=== PATIENT | male | born 1955 | race Caucasian/White ===

== ENCOUNTER → 2017-12-01 | Outpatient (CLI) | payer MEDICARE, MEDICAID | LOC: WOUNDCARE 13:57 | PROVIDERS: ATTEND Surgery | DX: L89.153 Pressure ulcer of sacral region, stage 3 (principal); Q05.2 Lumbar spina bifida with hydrocephalus; G82.21 Paraplegia, complete | CPT/HCPCS: 99203 ==

== ENCOUNTER → 2017-12-08 | Outpatient (CLI) | payer MEDICARE, MEDICAID | LOC: WOUNDCARE 13:30 | PROVIDERS: ATTEND Surgery | DX: L89.153 Pressure ulcer of sacral region, stage 3 (principal); Q05.2 Lumbar spina bifida with hydrocephalus; G82.21 Paraplegia, complete | CPT/HCPCS: 99212 ==

== ENCOUNTER → 2019-02-05 | Outpatient (CLI) | payer OTHER, MEDICARE, MEDICAID | LOC: LABNPT 15:34 | PROVIDERS: ATTEND Family Medicine | DX: Z01.89 Encounter for other specified special examinations (principal) | CPT/HCPCS: 85652 ==

== ENCOUNTER → 2019-02-09 | Outpatient (CLI) | payer MEDICARE, MEDICAID | LOC: WOUNDCARE 12:51 | PROVIDERS: ATTEND Surgery | DX: Q05.3 Sacral spina bifida with hydrocephalus (principal); G96.0 Cerebrospinal fluid leak; L98.491 Non-pressure chronic ulcer of skin of other sites limited to breakdown of skin; L22 Diaper dermatitis; I96 Gangrene, not elsewhere classified | CPT/HCPCS: 99213 ==

== ENCOUNTER → 2019-03-02 | Outpatient (CLI) | payer MEDICARE, MEDICAID | LOC: WOUNDCARE 14:13 | PROVIDERS: ATTEND Surgery | DX: Q05.3 Sacral spina bifida with hydrocephalus (principal); G96.0 Cerebrospinal fluid leak; L98.491 Non-pressure chronic ulcer of skin of other sites limited to breakdown of skin; L22 Diaper dermatitis; I96 Gangrene, not elsewhere classified | CPT/HCPCS: 99214 ==

== ENCOUNTER → 2019-03-23 | Outpatient (CLI) | payer MEDICARE, MEDICAID | LOC: WOUNDCARE 14:16 | PROVIDERS: ATTEND Surgery | DX: L98.491 Non-pressure chronic ulcer of skin of other sites limited to breakdown of skin (principal); I96 Gangrene, not elsewhere classified; G96.0 Cerebrospinal fluid leak; L22 Diaper dermatitis; Q05.3 Sacral spina bifida with hydrocephalus | CPT/HCPCS: 99212 ==

== ENCOUNTER → 2019-04-06 | Outpatient (CLI) | payer MEDICARE, MEDICAID | LOC: WOUNDCARE 14:33 | PROVIDERS: ATTEND Surgery | DX: L98.491 Non-pressure chronic ulcer of skin of other sites limited to breakdown of skin (principal); I96 Gangrene, not elsewhere classified; G96.0 Cerebrospinal fluid leak; L22 Diaper dermatitis; Q05.3 Sacral spina bifida with hydrocephalus | CPT/HCPCS: 99212 ==

== ENCOUNTER → 2019-05-04 | Outpatient (CLI) | payer MEDICARE, MEDICAID | LOC: WOUNDCARE 14:57 | PROVIDERS: ATTEND Surgery | DX: L22 Diaper dermatitis (principal); L98.491 Non-pressure chronic ulcer of skin of other sites limited to breakdown of skin; G96.0 Cerebrospinal fluid leak; Q05.8 Sacral spina bifida without hydrocephalus; I96 Gangrene, not elsewhere classified | CPT/HCPCS: 99212 ==

== ENCOUNTER → 2019-06-01 | Outpatient (CLI) | payer MEDICARE, MEDICAID | LOC: WOUNDCARE 15:05 | PROVIDERS: ATTEND Surgery | DX: L98.491 Non-pressure chronic ulcer of skin of other sites limited to breakdown of skin (principal); L22 Diaper dermatitis; G96.0 Cerebrospinal fluid leak; Q05.2 Lumbar spina bifida with hydrocephalus; I96 Gangrene, not elsewhere classified ==

== ENCOUNTER → 2019-06-29 | Outpatient (CLI) | payer MEDICARE, MEDICAID | LOC: WOUNDCARE 14:58 | PROVIDERS: ATTEND Surgery | DX: I96 Gangrene, not elsewhere classified (principal); L98.491 Non-pressure chronic ulcer of skin of other sites limited to breakdown of skin; L22 Diaper dermatitis; G96.0 Cerebrospinal fluid leak; Q05.3 Sacral spina bifida with hydrocephalus | CPT/HCPCS: 99212 ==

== ENCOUNTER → 2019-07-27 | Outpatient (CLI) | payer MEDICARE, MEDICAID | LOC: WOUNDCARE 12:59 | PROVIDERS: ATTEND Surgery | DX: L98.491 Non-pressure chronic ulcer of skin of other sites limited to breakdown of skin (principal); L22 Diaper dermatitis; G96.0 Cerebrospinal fluid leak; Q05.3 Sacral spina bifida with hydrocephalus | CPT/HCPCS: 99212 ==

== ENCOUNTER 2019-09-29 06:05 | Outpatient (CLI) | payer MEDICARE, MEDICAID ==
[~2019-09-29] VITALS: Ht 162.6 cm; Wt 63.6 kg
[2019-09-29] MEDS ORDERED: MIRT15TA6 PO (14:50)
[2019-09-29] MEDS ORDERED: ALPR0.5T5 PO (14:50)
[2019-09-29] MEDS ORDERED: PANT40TA3 PO (14:50)
[2019-09-29] MEDS ORDERED: MELA1TAB15 PO (14:50)
[2019-09-29] MEDS ORDERED: ASCO500C15 PO (14:50)
[2019-09-29] MEDS ORDERED: CITA40TA11 PO (14:50)
[2019-09-29] MEDS ORDERED: POTA10CA43 PO (14:50)
[2019-09-29] MEDS ORDERED: BUME1TAB8 PO (14:50)
[2019-09-29] MEDS ORDERED: RANI300T4 PO (14:50)
[2019-09-29] MEDS ORDERED: LOVA10TA PO (14:50)
== END 2019-09-29 14:56 | disposition home or self-care (01) ==
LOC: PREOP 06:05
PROVIDERS: ATTEND Specialist
DX: Z01.818 Encounter for other preprocedural examination (principal)

== ENCOUNTER 2019-10-01 08:25 | Day surgery (SDC) | payer MEDICARE, MEDICAID ==
[~2019-10-01] VITALS: Ht 162 cm; Wt 63.6 kg
[~2019-10-01 08:25] MED LIST: ALPR0.5T5 PO; ASCO500C15 PO; BUME1TAB8 PO; CITA40TA11 PO; LOVA10TA PO; MELA1TAB15 PO; MIRT15TA6 PO; PANT40TA3 PO; POTA10CA43 PO; RANI300T4 PO
[2019-10-01] MEDS ORDERED: POVIDONE (BETADINE) OPHTH SOLN 5% 30 ML OP ONE (08:45)
[2019-10-01] MEDS ORDERED: LIDOCAINE PF 1% 2 ML VIAL IR PRN (08:45)
[2019-10-01] MEDS ORDERED: TIMOLOL MALEATE 0.5% 5 ML (TIMOPTIC) BTL OU PRN (08:45)
[2019-10-01] MEDS ORDERED: MOXIFLOXACIN OPHTH SOLN 5 MG/ML 0.3 ML SYRINGE OP ONE (08:45)
[2019-10-01] MEDS: TETRACAINE 0.5% OPHTH SOLN 4 ML BTL (SINGLE DOSE ONLY) OU PRN ×4 (08:56→09:26)
[2019-10-01 09:02] VITALS: BP 139/77
[2019-10-01] MEDS: PHENYLEPHRINE 10% OPHTH (NEO-SYN) 5 ML BTL OU SCH ×3 (09:12→09:26)
[2019-10-01] MEDS: CYCLOPENTOLATE 1% (CYCLOGYL) 2 ML DROPS OP SCH ×3 (09:12→09:27)
[2019-10-01] MEDS ORDERED: MIDAZOLAM 2 MG/2 ML (VERSED) VIAL ONE (09:44)
--- NOTE | 2019-10-01 09:45 | Ophthalmologist Pre-Op Note ---
Pre-Operative Progress Note H&P Reviewed The H&P was reviewed, patient examined and no changes noted. Date H&P Reviewed: Oct 01, 2019 Time H&P Reviewed: 09:45 Pre-Op Dx Cataract, Left Eye JORGE ANSARI MD Oct 01, 2019 09:45
[2019-10-01] MEDS ORDERED: acetaZOLAMIDE ER 500 MG CAP (DIAMOX SEQUELS) PO ONE (10:00)
--- NOTE | 2019-10-01 10:09 | Ophthalmology Operative Report ---
Cataract removal/placement IOL PREOPERATIVE DIAGNOSIS: Cataract Left Eye POSTOPERATIVE DIAGNOSIS: Cataract Left Eye PROCEDURE: Cataract removal and placement of posterior chamber implant, left eye SURGEON: Scotty Ansari ANESTHESIA: Topical with sedation COMPLICATIONS: None ESTIMATED BLOOD LOSS: Minimal DESCRIPTION OF PROCEDURE: After proper informed consent was obtained, the patient, a 63 male, was taken to the Operating Room and the left eye was anesthetized with tetracaine. The left eye was then prepped and draped in the usual manner. A wire lid speculum was placed. A paracentesis was made at the left hand position. Preservative free lidocaine was injected into the anterior chamber followed by viscoelastic. A clear corneal incision was made in the temporal position. A capsulorrhexis was preformed and the central nuclear and cortical material were removed. The posterior capsule was polished and an Louie 24.0 [id number] was placed into the capsular bag. The residual viscoelastic was aspirated and balanced saline solution was injected into the anterior chamber. Moxifloxacin was injected into the anterior chamber. The wound was checked and found to be water tight. The patient tolerated the procedure well without complications. SCOTTY ANSARI MD Oct 01, 2019 10:09
[2019-10-01 10:15] VITALS: BP 115/72
--- OUTSIDE RECORDS SUMMARY | 2019-10-05 05:35 | XMS REPORT ---
Author Author Trey ANN Organization [facility] [place] Address [address] [place] [address] Care Team Providers Care Manager Business Continuity Name Role Phone MARTHA ANN Unavailable PROBLEMS Type Condition ICD9-CM Code [id number] Code Onset Dates Condition S tatus SNOMED Code Problem Current mild episode of teressa r depressive disorder, unspecified whether recurrent F32.0 Active [id number] ALLERGIES No Information ENCOUNTERS Encounter Location Date Diagnosis [facility] [place] [id number] [place] [phone] Apr, [facility] [address] [id number] Apr, [facility] [address] [id number] Apr, Dental examination Z01.20 ; Encounter for prophylactic administration of fluoride Z29.3 ; Dental plaque K03.6 and Caries K02.9 [facility] [place] [address] [id number] [address] [place] [phone] Mar, Current mild episode of teressa r depressive disorder, unspecified whether recurrent F32.0 and Grief F43.21 IMMUNIZATIONS No Known Immunizations SOCIAL HISTORY Never Assessed REASON FOR VISIT intake PLAN OF CARE Activity Details Follow Up 2 Weeks Reason: VITAL SIGNS MEDICATIONS Medication Instructions Dosage Frequency Start Date End Date Duration S tatus Bumetanide 1 MG as directed Acti ve Potassium Chloride 20 MEQ Orally Once a day 1 packet with food 24h 30 day(s) Active Pantoprazole Sodium 40 MG Orally Once a day 1 packet 24h 30 day(s) Active Mirtazapine 15 MG Orally Once a day 1 tablet at bedtime 24h 30 day(s) Active Alprazolam 0.25 MG Orally Twice a day 1 tablet 12h Active Venlafaxine HCl ER 150 MG Orally Once a day 1 tablet with food 24h 30 day(s) Active Lovastatin 10 MG Orally Once a day 1 tablet with the evening meal 24h 30 day(s) Active Ranitidine 1 tab 14 days Active RESULTS No Results PROCEDURES Procedure Date Ordered Result Body Site [facility] VISIT MENTAL HEALTH NEW PT Apr 22, 2018 Psych diagnostic evaluation, new patient Apr 22, 2018 INSTRUCTIONS MEDICATIONS ADMINISTERED No Known Medications MEDICAL (GENERAL) HISTORY Type Description Date Medical History parapaledgic/ pt. born with spinabifida Medical History major depressive disorder Surgical History spinal surgery 6+months ago to drain spi nal fluid 2017 Surgical History broken leg ( right) from fall from [facility] Hospitalization History see above surgeries
--- OUTSIDE RECORDS SUMMARY | 2019-10-05 05:35 | XMS REPORT ---
Author Author Trey ANN Organization [facility] Address [address] [place] [address] Care Team Providers Care Bacon De Rinder Name Role Phone MARTHA ANN Unavailable PROBLEMS Type Condition ICD9-CM Code [id number] Code Onset Dates Condition S tatus SNOMED Code Problem Recurrent major depressive disorder, in full remission F33.42 Active 62452173 Problem Mild episode of recurrent major depressive disorder F33.0 Active 413045423 Problem Grief F43.21 Active 377626528 Problem Current mild episode of teressa r depressive disorder, unspecified whether recurrent F32.0 Active [id number] ALLERGIES No Information ENCOUNTERS Encounter Location Date Diagnosis [facility] [address] [facility] [id number] [address] [place] [phone] Jun, Recurrent major depressive d isorder, in full remission F33.42 and Grief F43.21 [facility] [address] [facility] [id number] [address] [place] [phone] May, Mild episode of recurrent ma yessenia depressive disorder F33.0 and Grief F43.21 [facility] [address] [facility] [id number] [address] [place] [phone] Apr, Current mild episode of teressa r depressive disorder, unspecified whether recurrent F32.0 and Grief F43.21 [facility] [address] [id number] [address] [place] [id number] Apr, 2018 Dental examination Z01.20 ; Encounter for prophylactic administration of fluoride Z29.3 ; Dental plaque K03.6 and Caries K02.9 [facility] [address] [facility] [id number] [address] [place] [phone] Mar, Current mild episode of teressa r depressive disorder, unspecified whether recurrent F32.0 and Grief F43.21 IMMUNIZATIONS No Known Immunizations SOCIAL HISTORY Never Assessed REASON FOR VISIT f/u PLAN OF CARE VITAL SIGNS MEDICATIONS Unknown Medications RESULTS No Results PROCEDURES Procedure Date Ordered Result Body Site Psychotherapy, patient &/family, 30 minutes, established patient Jun 29, 2018 INSTRUCTIONS MEDICATIONS ADMINISTERED No Known Medications MEDICAL (GENERAL) HISTORY Type Description Date Medical History parapaledgic/ pt. born with spinabifida Medical History major depressive disorder Surgical History spinal surgery 6+months ago to drain spi nal fluid 2017 Surgical History broken leg ( right) from fall from [facility] Hospitalization History see above surgeries
--- OUTSIDE RECORDS SUMMARY | 2019-10-05 05:35 | XMS REPORT ---
Author Author Trey ANN Organization [facility] [place] Address [address] [place] [address] Care Team Providers Care Melt Down Furnace Operator Name Role Phone MARTHA ANN Unavailable PROBLEMS Type Condition ICD9-CM Code HZC09-MF Code Onset Dates Condition S tatus SNOMED Code Problem Grief F43.21 Active [id number] Problem Current mild episode of teressa r depressive disorder, unspecified whether recurrent F32.0 Active [id number] ALLERGIES No Information ENCOUNTERS Encounter Location Date Diagnosis [facility] [place] [id number] [place] [phone] May, [facility] [place] [id number] [place] [phone] Apr, Current mild episode of teressa r depressive disorder, unspecified whether recurrent F32.0 and Grief F43.21 [facility] [address] [id number] [place] [phone] Apr, Dental examination Z01.20 ; Encounter for prophylactic administration of fluoride Z29.3 ; Dental plaque K03.6 and Caries K02.9 [facility] [place] [address] [id number] [address] [place] [phone] Mar, Current mild episode of teressa r depressive disorder, unspecified whether recurrent F32.0 and Grief F43.21 IMMUNIZATIONS No Known Immunizations SOCIAL HISTORY Never Assessed REASON FOR VISIT BH f/u PLAN OF CARE Activity Details Follow Up Next available Reason: VITAL SIGNS MEDICATIONS Unknown Medications RESULTS No Results PROCEDURES Procedure Date Ordered Result Body Site [facility] VISIT MENTAL HEALTH ESTAB PT May 11, 2018 Psychotherapy, patient &/family, 60 minutes, established patient May 11, 2018 INSTRUCTIONS MEDICATIONS ADMINISTERED No Known Medications MEDICAL (GENERAL) HISTORY Type Description Date Medical History parapaledgic/ pt. born with spinabifida Medical History major depressive disorder Surgical History spinal surgery 6+months ago to drain spi nal fluid 2017 Surgical History broken leg ( right) from fall from [facility] Hospitalization History see above surgeries
--- OUTSIDE RECORDS SUMMARY | 2019-10-05 05:36 | XMS REPORT | Continuity of Care Document ---
Author Organization Unknown Address Unknown Phone Unavailable Allergies Active Description Code Type Severity Reaction Onset Reported/Identified Relationship to Patient Clinical Status Yes NO KNOWN DRUG ALLERGIES UNKNOWN NO KNOWN DRUG ALLERG Yes NO KNOWN DRUG ALLERGIES UNKNOWN UNKNOWN Yes No Known Drug Allergies [id number] Drug Allergy Unknown N/A 09/29/2019 Medications Medication Packaging Start Date St op Date Route Dosage Sig KETOROLAC VIAL INJ 15 MG/CC (TORADOL VIAL) MG 12/29/2018 12/29/2018 ONCE&1116 NORMAL SALINE 250CC IV BAG I NJ 0.9 % (NS 250CC IV BAG) ml 12/29/2018 12/29/2018 ONCE&1247 CEFTRIAXONE PREMIX IV BAG IV 1 GM/50CC (ROCEPHIN PREMIX IV BAG) GM 12/29/2018 12/29/2018 ONCE&1247 LORAZEPAM 1CC VIAL INJ 2 MG/CC (ATIVAN VIA L) MG 02/10/2019 02/10/2019 ONCE&1951 KETOROLAC VIAL INJ 30 MG/CC (TORADOL VIAL) MG 02/10/2019 02/10/2019 ONCE&2238 DIPHENHYDRAMINE VIAL INJ 50 MG/CC (BENADRYL VIAL) MG 02/10/2019 02/10/2019 PRN ONCE ALPRAZOLAM TAB 0.5 MG (XANAX) MG 02/26/2019 02/26/2019 PRN ONCE Problems Date Dx Coded Attending Type Code Diagnosis Diagnosed By 12/04/2017 SABINO YANES MD Ot G82.21 PARAPLEGIA, COMPLETE 12/04/2017 SABINO YANES MD Ot L89.153 PRESSURE ULCER OF SACRAL REGION, STAGE 3 12/04/2017 SABINO YANES MD Ot Q05 .2 LUMBAR SPINA BIFIDA WITH HYDROCEPHALUS 12/09/2017 SABINO YANES MD, Ot G82.21 PARAPLEGIA, COMPLETE 12/09/2017 SABINO YANES MD Ot L89.153 PRESSURE ULCER OF SACRAL REGION, STAGE 3 12/09/2017 JOAQUÍN MD, SABINO G Ot Q05 .2 LUMBAR SPINA BIFIDA WITH HYDROCEPHALUS 12/14/2017 SABINO YANES MD Ot G82.21 PARAPLEGIA, COMPLETE 12/14/2017 SABINO YANES MD Ot L89.153 PRESSURE ULCER OF SACRAL REGION, STAGE 3 12/14/2017 SABINO YANES MD Ot Q05 .2 LUMBAR SPINA BIFIDA WITH HYDROCEPHALUS 12/24/2017 SABINO YANES MD Ot G82.21 PARAPLEGIA, COMPLETE 12/24/2017 SABINO YANES MD Ot L89.153 PRESSURE ULCER OF SACRAL REGION, STAGE 3 12/24/2017 SABINO YANES MD Ot Q05 .2 LUMBAR SPINA BIFIDA WITH HYDROCEPHALUS 12/30/2017 SABINO YANES MD, Ot G82.21 PARAPLEGIA, COMPLETE 12/30/2017 SABINO YANES MD Ot L89.153 PRESSURE ULCER OF SACRAL REGION, STAGE 3 12/30/2017 SABINO YANES MD Ot Q05 .2 LUMBAR SPINA BIFIDA WITH HYDROCEPHALUS 01/07/2018 SABINO YANES MD Ot G82.21 PARAPLEGIA, COMPLETE 01/07/2018 SABINO YANES MD Ot L89.153 PRESSURE ULCER OF SACRAL REGION, STAGE 3 01/07/2018 SABINO YANES MD Ot Q05 .2 LUMBAR SPINA BIFIDA WITH HYDROCEPHALUS 01/07/2018 SABINO YANES MD Ot G82.21 PARAPLEGIA, COMPLETE 01/07/2018 SABINO YANES MD Ot L89.153 PRESSURE ULCER OF SACRAL REGION, STAGE 3 01/07/2018 SABINO YANES MD Ot Q05 .2 LUMBAR SPINA BIFIDA WITH HYDROCEPHALUS 02/26/2018 W 296.30 ISMAEL OR DEPRESSIVE DISORDER, RECURRENT EPISODE, UNSPECIFIED DEGREE 02/26/2018 W 530.81 ESO PHAGEAL REFLUX 02/26/2018 W 596.54 WILLOW ROGENIC BLADDER NOS 02/26/2018 W 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8 CHRONIC ULCER OF OTHER SPECIFIED SITES 02/27/2018 PILLAI, DAVID W E11.621 TYPE 2 DIABETES MELLITUS WITH FOOT ULCER 02/27/2018 PILLAI, DAVID W N31.9 NEUROMUSCULAR DYSFUNCTION OF BLADDER, UNSPECIFIED 02/27/2018 PILLAI DAVID W 596.54 NEUROGENIC BLADDER NOS 02/27/2018 ROSAS DAVID W 707.8 CHRONIC ULCER OF OTHER SPECIFIED SITES 02/27/2018 PILLAI DAVID W 780.93 MEMORY LOSS 02/27/2018 PILLAI, DAVID W E11.621 TYPE 2 DIABETES MELLITUS WITH FOOT ULCER 02/27/2018 ROSAS DAVID W N31.9 NEUROMUSCULAR DYSFUNCTION OF BLADDER, UNSPECIFIED 02/27/2018 PILLAI, DAVID W R41.3 OTHER AMNESIA 02/27/2018 PILLAI DAVID W 596.54 NEUROGENIC BLADDER NOS 02/27/2018 PILLAI DAVID W 707.8 CHRONIC ULCER OF OTHER SPECIFIED SITES 02/27/2018 PILLAI DAVID W 780.93 MEMORY LOSS 02/27/2018 PILLAI, DAVID W E11.621 TYPE 2 DIABETES MELLITUS WITH FOOT ULCER 02/27/2018 ROSAS DAVID W N31.9 NEUROMUSCULAR DYSFUNCTION OF BLADDER, UNSPECIFIED 02/27/2018 ROSAS DAVID W R41.3 OTHER AMNESIA 02/27/2018 PILLAI DAVID W 596.54 NEUROGENIC BLADDER NOS 02/27/2018 PILLAI DAVID W 707.8 CHRONIC ULCER OF OTHER SPECIFIED SITES 02/27/2018 ROSAS DAVID W 780.93 MEMORY LOSS 02/27/2018 PILLAI, DAVID W E11.621 TYPE 2 DIABETES MELLITUS WITH FOOT ULCER 02/27/2018 ROSAS DAVID W N31.9 NEUROMUSCULAR DYSFUNCTION OF BLADDER, UNSPECIFIED 02/27/2018 DAVID PILLAI W R41.3 OTHER AMNESIA 03/24/2018 DAVID PILLAI W 276.0 HYPEROSMOLALITY AND/OR HYPERNATREMIA 03/24/2018 DAVID PILLAI W 790.5 OTHER NONSPECIFIC ABNORMAL SERUM ENZYME LEVELS 03/24/2018 DAVID PILLAI W E87.0 HYPEROSMOLALITY AND HYPERNATREMIA 03/24/2018 DAVID PILLAI W R74.8 ABNORMAL LEVELS OF OTHER SERUM ENZYMES 03/24/2018 DAVID PILLAI W 276.0 HYPEROSMOLALITY AND/OR HYPERNATREMIA 03/24/2018 DAVID PILLAI W 790.5 OTHER NONSPECIFIC ABNORMAL SERUM ENZYME LEVELS 03/24/2018 DAVID PILLAI W E87.0 HYPEROSMOLALITY AND HYPERNATREMIA 03/24/2018 DAVID PILLAI W R74.8 ABNORMAL LEVELS OF OTHER SERUM ENZYMES 03/24/2018 W 276.0 HYPE ROSMOLALITY AND/OR HYPERNATREMIA 03/24/2018 W 530.81 ESO PHAGEAL REFLUX 03/24/2018 W 790.5 OTHE R NONSPECIFIC ABNORMAL SERUM ENZYME LEVELS 03/24/2018 W E87.0 HYPE ROSMOLALITY AND HYPERNATREMIA 03/24/2018 W K21.0 HARVINDER RO-ESOPHAGEAL REFLUX DISEASE WITH ESOPHAGITIS 03/24/2018 W R74.8 ABNO RMAL LEVELS OF OTHER SERUM ENZYMES 03/24/2018 DAVID PILLAI W 276.0 HYPEROSMOLALITY AND/OR HYPERNATREMIA 03/24/2018 DAVID PILLAI W 790.5 OTHER NONSPECIFIC ABNORMAL SERUM ENZYME LEVELS 03/24/2018 DAVID PILLAI W E87.0 HYPEROSMOLALITY AND HYPERNATREMIA 03/24/2018 DAVID PILLAI W R74.8 ABNORMAL LEVELS OF OTHER SERUM ENZYMES 04/16/2018 W 296.30 ISMAEL OR DEPRESSIVE DISORDER, RECURRENT EPISODE, UNSPECIFIED DEGREE 04/16/2018 A 300.02 GEN ERALIZED ANXIETY DISORDER 04/16/2018 W 780.93 MEM ORY LOSS 04/16/2018 W F33.9 MARISSA R DEPRESSIVE DISORDER, RECURRENT, UNSPECIFIED 04/16/2018 A 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 04/16/2018 W R41.3 OTHE R AMNESIA 05/19/2018 A 296.30 ISMAEL OR DEPRESSIVE DISORDER, RECURRENT EPISODE, UNSPECIFIED DEGREE 05/19/2018 W 300.02 GEN ERALIZED ANXIETY DISORDER 05/19/2018 W 780.93 MEM ORY LOSS 05/19/2018 A F33.9 MARISSA R DEPRESSIVE DISORDER, RECURRENT, UNSPECIFIED 05/19/2018 W 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 05/19/2018 W R41.3 OTHE R AMNESIA 08/13/2018 W 110.0 DERM ATOPHYTOSIS OF SCALP AND STAHL 08/13/2018 W 327.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 08/13/2018 W B35.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 08/13/2018 W F51.05 INS OMNIA DUE TO OTHER MENTAL DISORDER 12/29/2018 Asif Dotson W 276.0 HYPEROSMOLALITY AND/OR HYPERNATREMIA 12/29/2018 Asif Dotson 344.1 PARAPLEGIA 12/29/2018 Asif Dotson W 491.8 OTHER CHRONIC BRONCHITIS 12/29/2018 Asif Dotson 599.0 URINARY TRACT INFECTION, SITE NOT SPECIFIED 12/29/2018 Asif Dotson 786.5 CHEST PAIN 12/29/2018 Asif Dotson E87.0 HYPEROSMOLALITY AND HYPERNATREMIA 12/29/2018 Asif Dotson G82.20 PARAPLEGIA, UNSPECIFIED 12/29/2018 sAif Dotson N39.0 URINARY TRACT INFECTION, SITE NOT SPECIFIED 12/29/2018 Asif Dotson R07.89 OTHER CHEST PAIN 12/29/2018 Asif Dotson Z05.9 OBS T EVAL OF NB FOR UNSP SUSPECTED CONDITION RULED OUT 12/31/2018 W 599.0 URIN EMERY TRACT INFECTION, SITE NOT SPECIFIED 12/31/2018 W N39.0 URIN EMERY TRACT INFECTION, SITE NOT SPECIFIED 01/22/2019 W 879.8 OPEN WOUND(S) (MULTIPLE) OF UNSPECIFIED SITE(S) EXCEPT LIMBS, WITHOUT MENTION OF COMPLICATION 01/22/2019 W T14.8 OTHE R INJURY OF UNSPECIFIED BODY REGION 02/04/2019 DAVID PLILAI W 741.93 SPINA BIFIDA, WITHOUT MENTION OF HYDROCEPHALUS, LUMBAR REGION 02/04/2019 DAVID PILLAI W 958.3 POSTTRAUMATIC WOUND INFECTION NOT ELSEWHERE CLASSIFIED 02/04/2019 NIALL PILLAIHEL W B99.9 UNSPECIFIED INFECTIOUS DISEASE 02/04/2019 DAVID PILLAI W Q05.2 LUMBAR SPINA BIFIDA WITH HYDROCEPHALUS 02/04/2019 W 707.9 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 ULCER OF UNSPECIFIED SITE 02/04/2019 W 741.91 SPI NA BIFIDA, WITHOUT MENTION OF HYDROCEPHALUS, CERVICAL REGION 02/04/2019 W 741.93 SPI NA BIFIDA, WITHOUT MENTION OF HYDROCEPHALUS, LUMBAR REGION 02/04/2019 W 958.3 POST TRAUMATIC WOUND INFECTION NOT ELSEWHERE CLASSIFIED 02/04/2019 W B99.9 UNSP ECIFIED INFECTIOUS DISEASE 02/04/2019 W L98.499 NO N-PRESSURE CHRONIC ULCER OF SKIN OF OTHER SITES WITH UNSPECIFIED SEVERITY 02/04/2019 W Q05.2 LUMB AR SPINA BIFIDA WITH HYDROCEPHALUS 02/04/2019 W Q05.5 CERV ICAL SPINA BIFIDA WITHOUT HYDROCEPHALUS 02/04/2019 PILLAI DAVID W 741.93 SPINA BIFIDA, WITHOUT MENTION OF HYDROCEPHALUS, LUMBAR REGION 02/04/2019 PILLAI DAVID W 958.3 POSTTRAUMATIC WOUND INFECTION NOT ELSEWHERE CLASSIFIED 02/04/2019 NIALL PILLAIHEL W B99.9 UNSPECIFIED INFECTIOUS DISEASE 02/04/2019 PILLAI DAVID W Q05.2 LUMBAR SPINA BIFIDA WITH HYDROCEPHALUS 02/05/2019 JOAQUÍN WALKER, SABINO Buchanan Ot G82.21 PARAPLEGIA, COMPLETE 02/05/2019 SABINO YANES MD Ot L89.153 PRESSURE ULCER OF SACRAL REGION, STAGE 3 02/05/2019 SABINO YANES MD Ot Q05 .2 LUMBAR SPINA BIFIDA WITH HYDROCEPHALUS 02/05/2019 SABINO YANES MD, Ot G82.21 PARAPLEGIA, COMPLETE 02/05/2019 SABINO YANES MD Ot L89.153 PRESSURE ULCER OF SACRAL REGION, STAGE 3 02/05/2019 SABINO YANES MD Ot Q05 .2 LUMBAR SPINA BIFIDA WITH HYDROCEPHALUS 02/05/2019 SABINO YANES MD, Ot G82.21 PARAPLEGIA, COMPLETE 02/05/2019 SABINO YANES MD Ot L89.153 PRESSURE ULCER OF SACRAL REGION, STAGE 3 02/05/2019 SABINO YANES MD Ot Q05 .2 LUMBAR SPINA BIFIDA WITH HYDROCEPHALUS 02/05/2019 SABINO YANES MD, Ot G82.21 PARAPLEGIA, COMPLETE 02/05/2019 SABINO YANES MD Ot L89.153 PRESSURE ULCER OF SACRAL REGION, STAGE 3 02/05/2019 SABINO YANES MD Ot Q05 .2 LUMBAR SPINA BIFIDA WITH HYDROCEPHALUS 02/09/2019 SABINO YANES MD, Ot G82.21 PARAPLEGIA, COMPLETE 02/09/2019 SABINO YANES MD Ot L89.153 PRESSURE ULCER OF SACRAL REGION, STAGE 3 02/09/2019 SABINO YANES MD Ot Q05 .2 LUMBAR SPINA BIFIDA WITH HYDROCEPHALUS 02/09/2019 SABINO YANES MD, Ot G82.21 PARAPLEGIA, COMPLETE 02/09/2019 SABINO YANES MD Ot L89.153 PRESSURE ULCER OF SACRAL REGION, STAGE 3 02/09/2019 SABINO YANES MD Ot Q05 .2 LUMBAR SPINA BIFIDA WITH HYDROCEPHALUS 02/10/2019 LEISURE, LYNIETA W 707.05 PRESSURE ULCER, BUTTOCK 02/10/2019 LEISURE, LYNIETA W L89.3 PRESSURE ULCER OF BUTTOCK 02/11/2019 LEISURE, LYNIETA W 707.03 PRESSURE ULCER, LOWER BACK 02/11/2019 LEISURE, LYNIETA W L89.15 1 PRESSURE ULCER OF SACRAL REGION, STAGE 1 02/11/2019 ROSAS WALKER, DAVID Gonsalez Ot Z01.89 ENCOUNTER FOR OTHER SPECIFIED SPECIAL EX 02/23/2019 W 741.93 SPI NA BIFIDA, WITHOUT MENTION OF HYDROCEPHALUS, LUMBAR REGION 02/23/2019 W 756.17 SPI NA BIFIDA OCCULTA 02/23/2019 W Q05.7 LUMB AR SPINA BIFIDA WITHOUT HYDROCEPHALUS 02/23/2019 W 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 02/26/2019 Landen Hampton W 560.1 PARALYTIC ILEUS 02/26/2019 Landen Hampton 786.09 OTHER DYSPNEA AND RESPIRATORY ABNORMALITY 02/26/2019 Landen Hampton K56.7 ILEUS, UNSPECIFIED 02/26/2019 Landen Hampton R06.09 OTHER FORMS OF DYSPNEA 03/02/2019 SABINO YANES MD Ot G96 .0 CEREBROSPINAL FLUID LEAK 03/02/2019 SABINO YANES MD Ot I96 GANGRENE, NOT ELSEWHERE CLASSIFIED 03/02/2019 SABINO YANES MD Ot L22 DIAPER DERMATITIS 03/02/2019 SABINO YANES MD Ot L98.491 NON-PRS CHRONIC ULCER SKIN/ SITES LIMITE 03/02/2019 SABINO YANES MD Ot Q05 .3 SACRAL SPINA BIFIDA WITH HYDROCEPHALUS 03/04/2019 SABINO YANES MD Ot G96 .0 CEREBROSPINAL FLUID LEAK 03/04/2019 SABINO YANES MD Ot I96 GANGRENE, NOT ELSEWHERE CLASSIFIED 03/04/2019 SABINO YANES MD Ot L22 DIAPER DERMATITIS 03/04/2019 SABINO YANES MD Ot L98.491 NON-PRS CHRONIC ULCER SKIN/ SITES LIMITE 03/04/2019 SABINO YANES MD Ot Q05 .3 SACRAL SPINA BIFIDA WITH HYDROCEPHALUS 04/02/2019 SABINO YANES MD Ot G96 .0 CEREBROSPINAL FLUID LEAK 04/02/2019 SABINO YANES MD Ot I96 GANGRENE, NOT ELSEWHERE CLASSIFIED 04/02/2019 SABINO YANES MD Ot L22 DIAPER DERMATITIS 04/02/2019 SABINO YANES MD Ot L98.491 NON-PRS CHRONIC ULCER SKIN/ SITES LIMITE 04/02/2019 SABINO YANES MD Ot Q05 .3 SACRAL SPINA BIFIDA WITH HYDROCEPHALUS 04/02/2019 SABINO YANSE MD Ot G96 .0 CEREBROSPINAL FLUID LEAK 04/02/2019 SABINO YANES MD Ot I96 GANGRENE, NOT ELSEWHERE CLASSIFIED 04/02/2019 SABINO YANES MD Ot L22 DIAPER DERMATITIS 04/02/2019 SABINO YANES MD Ot L98.491 NON-PRS CHRONIC ULCER SKIN/ SITES LIMITE 04/02/2019 SABINO YANES MD Ot Q05 .3 SACRAL SPINA BIFIDA WITH HYDROCEPHALUS 05/07/2019 SABINO YANES MD Ot G96 .0 CEREBROSPINAL FLUID LEAK 05/07/2019 SABINO YANES MD Ot I96 GANGRENE, NOT ELSEWHERE CLASSIFIED 05/07/2019 SABINO YANES MD Ot L22 DIAPER DERMATITIS 05/07/2019 SABINO YANES MD Ot L98.491 NON-PRS CHRONIC ULCER SKIN/ SITES LIMITE 05/07/2019 SABINO YANES MD Ot Q05 .8 SACRAL SPINA BIFIDA WITHOUT HYDROCEPHALU 05/10/2019 SABINO YANES MD Ot G96 .0 CEREBROSPINAL FLUID LEAK 05/10/2019 SABINO YANES MD Ot I96 GANGRENE, NOT ELSEWHERE CLASSIFIED 05/10/2019 SABINO YANES MD Ot L22 DIAPER DERMATITIS 05/10/2019 SABINO YANES MD Ot L98.491 NON-PRS CHRONIC ULCER SKIN/ SITES LIMITE 05/10/2019 SABINO YANES MD Ot Q05 .8 SACRAL SPINA BIFIDA WITHOUT HYDROCEPHALU 06/03/2019 SABINO YANES MD Ot G96 .0 CEREBROSPINAL FLUID LEAK 06/03/2019 SABINO YANES MD Ot I96 GANGRENE, NOT ELSEWHERE CLASSIFIED 06/03/2019 SABINO YANES MD Ot L22 DIAPER DERMATITIS 06/03/2019 SABINO YANES MD Ot L98.491 NON-PRS CHRONIC ULCER SKIN/ SITES LIMITE 06/03/2019 SABINO YANES MD Ot Q05 .2 LUMBAR SPINA BIFIDA WITH HYDROCEPHALUS 06/14/2019 SABINO YANES MD Ot G96 .0 CEREBROSPINAL FLUID LEAK 06/14/2019 SABINO YANES MD Ot I96 GANGRENE, NOT ELSEWHERE CLASSIFIED 06/14/2019 SABINO YANES MD Ot L22 DIAPER DERMATITIS 06/14/2019 SABINO YANES MD Ot L98.491 NON-PRS CHRONIC ULCER SKIN/ SITES LIMITE 06/14/2019 SABINO YANES MD Ot Q05 .8 SACRAL SPINA BIFIDA WITHOUT HYDROCEPHALU 06/23/2019 SABINO YANES MD Ot G96 .0 CEREBROSPINAL FLUID LEAK 06/23/2019 SABINO YANES MD Ot I96 GANGRENE, NOT ELSEWHERE CLASSIFIED 06/23/2019 SABINO YANES MD Ot L22 DIAPER DERMATITIS 06/23/2019 SABINO AYNES MD Ot L98.491 NON-PRS CHRONIC ULCER SKIN/ SITES LIMITE 06/23/2019 SABINO YANES MD Ot Q05 .2 LUMBAR SPINA BIFIDA WITH HYDROCEPHALUS 07/29/2019 SABINO YANES MD Ot G96 .0 CEREBROSPINAL FLUID LEAK 07/29/2019 SABINO YANES MD Ot L22 DIAPER DERMATITIS 07/29/2019 SABINO YANES MD Ot L98.491 NON-PRS CHRONIC ULCER SKIN/ SITES LIMITE 07/29/2019 SABINO YANES MD Ot Q05 .3 SACRAL SPINA BIFIDA WITH HYDROCEPHALUS 08/23/2019 SABINO YANES MD Ot G96 .0 CEREBROSPINAL FLUID LEAK 08/23/2019 SABINO YANES MD Ot L22 DIAPER DERMATITIS 08/23/2019 SABINO YANES MD, Ot L98.491 NON-PRS CHRONIC ULCER SKIN/ SITES LIMITE 08/23/2019 SABINO YANES MD Ot Q05 .3 SACRAL SPINA BIFIDA WITH HYDROCEPHALUS 09/24/2019 SABINO YANES MD Ot G82.21 PARAPLEGIA, COMPLETE 09/24/2019 JOAQUÍN WALKER, SABINO Buchanan Ot L89.153 PRESSURE ULCER OF SACRAL REGION, STAGE 3 09/24/2019 SABINO YANES MD Ot Q05 .2 LUMBAR SPINA BIFIDA WITH HYDROCEPHALUS 09/24/2019 SABINO YANES MD Ot G82.21 PARAPLEGIA, COMPLETE 09/24/2019 JOAQUÍN WALKER, SABINO Buchanan Ot L89.153 PRESSURE ULCER OF SACRAL REGION, STAGE 3 09/24/2019 SABINO YANES MD Ot Q05 .2 LUMBAR SPINA BIFIDA WITH HYDROCEPHALUS 09/24/2019 SABINO YANES MD Ot G96 .0 CEREBROSPINAL FLUID LEAK 09/24/2019 SABINO YANES MD Ot I96 GANGRENE, NOT ELSEWHERE CLASSIFIED 09/24/2019 SABINO YANES MD Ot L22 DIAPER DERMATITIS 09/24/2019 SABINO YANES MD, Ot L98.491 NON-PRS CHRONIC ULCER SKIN/ SITES LIMITE 09/24/2019 SABINO YANES MD Ot Q05 .3 SACRAL SPINA BIFIDA WITH HYDROCEPHALUS 09/24/2019 ROSAS WALKER, DAVID Gonsalez Ot Z01.89 ENCOUNTER FOR OTHER SPECIFIED SPECIAL EX 09/24/2019 SABINO YANES MD Ot G96 .0 CEREBROSPINAL FLUID LEAK 09/24/2019 SABINO YANES MD Ot I96 GANGRENE, NOT ELSEWHERE CLASSIFIED 09/24/2019 SABINO YANES MD Ot L22 DIAPER DERMATITIS 09/24/2019 SABINO YANES MD Ot L98.491 NON-PRS CHRONIC ULCER SKIN/ SITES LIMITE 09/24/2019 SABINO YANES MD Ot Q05 .3 SACRAL SPINA BIFIDA WITH HYDROCEPHALUS 09/24/2019 SABINO YANES MD Ot G96 .0 CEREBROSPINAL FLUID LEAK 09/24/2019 SABINO YANES MD Ot I96 GANGRENE, NOT ELSEWHERE CLASSIFIED 09/24/2019 SABINO YANES MD Ot L22 DIAPER DERMATITIS 09/24/2019 JOAQUÍN WALKER, SABINO Buchanan Ot L98.491 NON-PRS CHRONIC ULCER SKIN/ SITES LIMITE 09/24/2019 SABINO YANES MD Ot Q05 .3 SACRAL SPINA BIFIDA WITH HYDROCEPHALUS 09/24/2019 JOAQUÍN WALKER, SABINO Buchanan Ot G96 .0 CEREBROSPINAL FLUID LEAK 09/24/2019 JOAQUÍN WALKER, SABINO Buchanan Ot I96 GANGRENE, NOT ELSEWHERE CLASSIFIED 09/24/2019 JOAQUÍN WALKER, SABINO Buchanan Ot L22 DIAPER DERMATITIS 09/24/2019 JOAQUÍN WALKER, SABINO Buchanan Ot L98.491 NON-PRS CHRONIC ULCER SKIN/ SITES LIMITE 09/24/2019 SABINO YANES MD Ot Q05 .3 SACRAL SPINA BIFIDA WITH HYDROCEPHALUS 09/24/2019 JOAQUÍN WALKER, SABINO Buchanan Ot G96 .0 CEREBROSPINAL FLUID LEAK 09/24/2019 SABINO YANES MD Ot I96 GANGRENE, NOT ELSEWHERE CLASSIFIED 09/24/2019 SABINO YANES MD Ot L22 DIAPER DERMATITIS 09/24/2019 JOAQUÍN WALKER, SABINO Buchanan Ot L98.491 NON-PRS CHRONIC ULCER SKIN/ SITES LIMITE 09/24/2019 SABINO YANES MD Ot Q05 .8 SACRAL SPINA BIFIDA WITHOUT HYDROCEPHALU 09/24/2019 SABINO YANES MD Ot G96 .0 CEREBROSPINAL FLUID LEAK 09/24/2019 SABINO YANES MD Ot I96 GANGRENE, NOT ELSEWHERE CLASSIFIED 09/24/2019 SABINO YANES MD Ot L22 DIAPER DERMATITIS 09/24/2019 SABINO YANES MD Ot L98.491 NON-PRS CHRONIC ULCER SKIN/ SITES LIMITE 09/24/2019 SABINO YANES MD Ot Q05 .2 LUMBAR SPINA BIFIDA WITH HYDROCEPHALUS 09/24/2019 SABINO YANES MD Ot G96 .0 CEREBROSPINAL FLUID LEAK 09/24/2019 SABINO YANES MD Ot I96 GANGRENE, NOT ELSEWHERE CLASSIFIED 09/24/2019 SABINO YANES MD Ot L22 DIAPER DERMATITIS 09/24/2019 JOAQUÍN WALKER, SABINO Buchanan Ot L98.491 NON-PRS CHRONIC ULCER SKIN/ SITES LIMITE 09/24/2019 SABINO YANES MD Ot Q05 .3 SACRAL SPINA BIFIDA WITH HYDROCEPHALUS 09/24/2019 SABINO YANES MD Ot G96 .0 CEREBROSPINAL FLUID LEAK 09/24/2019 SABINO YANES MD, Ot L22 DIAPER DERMATITIS 09/24/2019 SABINO YANES MD, Ot L98.491 NON-PRS CHRONIC ULCER SKIN/ SITES LIMITE 09/24/2019 SABINO YANES MD Ot Q05 .3 SACRAL SPINA BIFIDA WITH HYDROCEPHALUS 09/29/2019 JORGE ANSARI MD Ot Z01.818 ENCOUNTER FOR OTHER PREPROCEDURAL EXAMIN 10/01/2019 SABINO YANES MD Ot G82.21 PARAPLEGIA, COMPLETE 10/01/2019 SABINO YANES MD Ot L89.153 PRESSURE ULCER OF SACRAL REGION, STAGE 3 10/01/2019 SABINO YANES MD Ot Q05 .2 LUMBAR SPINA BIFIDA WITH HYDROCEPHALUS 10/01/2019 SABINO YANES MD, Ot G82.21 PARAPLEGIA, COMPLETE 10/01/2019 SABINO YANES MD Ot L89.153 PRESSURE ULCER OF SACRAL REGION, STAGE 3 10/01/2019 SABINO YANES MD Ot Q05 .2 LUMBAR SPINA BIFIDA WITH HYDROCEPHALUS 10/01/2019 SABINO YANES MD Ot G96 .0 CEREBROSPINAL FLUID LEAK 10/01/2019 SABINO YANES MD Ot I96 GANGRENE, NOT ELSEWHERE CLASSIFIED 10/01/2019 SABINO YANES MD, Ot L22 DIAPER DERMATITIS 10/01/2019 SABINO YANES MD, Ot L98.491 NON-PRS CHRONIC ULCER SKIN/ SITES LIMITE 10/01/2019 SABINO YANES MD Ot Q05 .3 SACRAL SPINA BIFIDA WITH HYDROCEPHALUS 10/01/2019 DAVID PILLAI MD Ot Z01.89 ENCOUNTER FOR OTHER SPECIFIED SPECIAL EX 10/01/2019 SABINO YANES MD Ot G96 .0 CEREBROSPINAL FLUID LEAK 10/01/2019 SABINO YANES MD Ot I96 GANGRENE, NOT ELSEWHERE CLASSIFIED 10/01/2019 SABINO YANES MD Ot L22 DIAPER DERMATITIS 10/01/2019 SABINO YANES MD Ot L98.491 NON-PRS CHRONIC ULCER SKIN/ SITES LIMITE 10/01/2019 SABINO YANES MD Ot Q05 .3 SACRAL SPINA BIFIDA WITH HYDROCEPHALUS 10/01/2019 SABINO YANES MD Ot G96 .0 CEREBROSPINAL FLUID LEAK 10/01/2019 JOAQUÍN WALKER, SABINO Buchanan Ot I96 GANGRENE, NOT ELSEWHERE CLASSIFIED 10/01/2019 JOAQUÍN WALKER, SABINO Buchanan Ot L22 DIAPER DERMATITIS 10/01/2019 JOAQUÍN WALKER, SABINO Buchanan Ot L98.491 NON-PRS CHRONIC ULCER SKIN/ SITES LIMITE 10/01/2019 JOAQUÍN WALKER, SABINO Buchanan Ot Q05 .3 SACRAL SPINA BIFIDA WITH HYDROCEPHALUS 10/01/2019 JOAQUÍN WALKER, SABINO Buchanan Ot G96 .0 CEREBROSPINAL FLUID LEAK 10/01/2019 JOAQUÍN WALKER, SABINO Buchanan Ot I96 GANGRENE, NOT ELSEWHERE CLASSIFIED 10/01/2019 JOAQUÍN WALKER, SABINO Buchanan Ot L22 DIAPER DERMATITIS 10/01/2019 JOAQUÍN WALKER, SABINO Buchanan Ot L98.491 NON-PRS CHRONIC ULCER SKIN/ SITES LIMITE 10/01/2019 SABINO YANES MD Ot Q05 .3 SACRAL SPINA BIFIDA WITH HYDROCEPHALUS 10/01/2019 JOAQUÍN WALKER, SABINO Buchanan Ot G96 .0 CEREBROSPINAL FLUID LEAK 10/01/2019 OJAQUÍN WALKER, SABINO Buchanan Ot I96 GANGRENE, NOT ELSEWHERE CLASSIFIED 10/01/2019 SABINO YANES MD Ot L22 DIAPER DERMATITIS 10/01/2019 JOAQUÍN WALKER, SABINO Buchanan Ot L98.491 NON-PRS CHRONIC ULCER SKIN/ SITES LIMITE 10/01/2019 SABINO YANES MD Ot Q05 .8 SACRAL SPINA BIFIDA WITHOUT HYDROCEPHALU 10/01/2019 JOAQUÍN WALKER, SABINO Buchanan Ot G96 .0 CEREBROSPINAL FLUID LEAK 10/01/2019 SABINO YANES MD Ot I96 GANGRENE, NOT ELSEWHERE CLASSIFIED 10/01/2019 SABINO YANES MD Ot L22 DIAPER DERMATITIS 10/01/2019 JOAQUÍN WALKER, SABINO Buchanan Ot L98.491 NON-PRS CHRONIC ULCER SKIN/ SITES LIMITE 10/01/2019 SABINO YANES MD Ot Q05 .2 LUMBAR SPINA BIFIDA WITH HYDROCEPHALUS 10/01/2019 JOAQUÍN WALKER, SABINO Buchanan Ot G96 .0 CEREBROSPINAL FLUID LEAK 10/01/2019 JOAQUÍN WALKER, SABINO Buchanan Ot I96 GANGRENE, NOT ELSEWHERE CLASSIFIED 10/01/2019 JOAQUÍN WALKER, SABINO Buchanan Ot L22 DIAPER DERMATITIS 10/01/2019 JOAQUÍN WALKER, SABINO Buchanan Ot L98.491 NON-PRS CHRONIC ULCER SKIN/ SITES LIMITE 10/01/2019 SABINO YANES MD Ot Q05 .3 SACRAL SPINA BIFIDA WITH HYDROCEPHALUS 10/01/2019 SABINO YANES MD Ot G96 .0 CEREBROSPINAL FLUID LEAK 10/01/2019 SABINO YANES MD, Ot L22 DIAPER DERMATITIS 10/01/2019 SABINO YANES MD, Ot L98.491 NON-PRS CHRONIC ULCER SKIN/ SITES LIMITE 10/01/2019 SABINO YANES MD Ot Q05 .3 SACRAL SPINA BIFIDA WITH HYDROCEPHALUS 10/01/2019 SABINO YANES MD Ot G82.21 PARAPLEGIA, COMPLETE 10/01/2019 JOAQUÍN WALKER, SABINO Buchanan Ot L89.153 PRESSURE ULCER OF SACRAL REGION, STAGE 3 10/01/2019 SABINO YANES MD Ot Q05 .2 LUMBAR SPINA BIFIDA WITH HYDROCEPHALUS 10/01/2019 SABINO YANES MD, Ot G82.21 PARAPLEGIA, COMPLETE 10/01/2019 SABINO YANES MD Ot L89.153 PRESSURE ULCER OF SACRAL REGION, STAGE 3 10/01/2019 SABINO YANES MD Ot Q05 .2 LUMBAR SPINA BIFIDA WITH HYDROCEPHALUS 10/01/2019 SABINO YANES MD Ot G96 .0 CEREBROSPINAL FLUID LEAK 10/01/2019 SABINO YANES MD Ot I96 GANGRENE, NOT ELSEWHERE CLASSIFIED 10/01/2019 SABINO YANES MD, Ot L22 DIAPER DERMATITIS 10/01/2019 SABINO YANES MD, Ot L98.491 NON-PRS CHRONIC ULCER SKIN/ SITES LIMITE 10/01/2019 SABINO YANES MD Ot Q05 .3 SACRAL SPINA BIFIDA WITH HYDROCEPHALUS 10/01/2019 ROSAS WALKER, DAVID Gonsalez Ot Z01.89 ENCOUNTER FOR OTHER SPECIFIED SPECIAL EX 10/01/2019 SABINO YANES MD Ot G96 .0 CEREBROSPINAL FLUID LEAK 10/01/2019 SABINO YANES MD Ot I96 GANGRENE, NOT ELSEWHERE CLASSIFIED 10/01/2019 SABINO YANES MD Ot L22 DIAPER DERMATITIS 10/01/2019 SABINO YANES MD Ot L98.491 NON-PRS CHRONIC ULCER SKIN/ SITES LIMITE 10/01/2019 SABINO YANES MD Ot Q05 .3 SACRAL SPINA BIFIDA WITH HYDROCEPHALUS 10/01/2019 SABINO YANES MD Ot G96 .0 CEREBROSPINAL FLUID LEAK 10/01/2019 SABINO YANES MD Ot I96 GANGRENE, NOT ELSEWHERE CLASSIFIED 10/01/2019 SABINO YANES MD Ot L22 DIAPER DERMATITIS 10/01/2019 JOAQUÍN WALKER, SABINO Buchanan Ot L98.491 NON-PRS CHRONIC ULCER SKIN/ SITES LIMITE 10/01/2019 SABINO YANES MD Ot Q05 .3 SACRAL SPINA BIFIDA WITH HYDROCEPHALUS 10/01/2019 JOAQUÍN WALKER, SABINO Buchanan Ot G96 .0 CEREBROSPINAL FLUID LEAK 10/01/2019 JOAQUÍN WALKER, SABINO Buchanan Ot I96 GANGRENE, NOT ELSEWHERE CLASSIFIED 10/01/2019 SABINO YANES MD Ot L22 DIAPER DERMATITIS 10/01/2019 JOAQUÍN WALKER, SABINO Buchanan Ot L98.491 NON-PRS CHRONIC ULCER SKIN/ SITES LIMITE 10/01/2019 SABINO YANES MD Ot Q05 .3 SACRAL SPINA BIFIDA WITH HYDROCEPHALUS 10/01/2019 SABINO YANES MD Ot G96 .0 CEREBROSPINAL FLUID LEAK 10/01/2019 JOAQUÍN WALKER, SABINO Buchanan Ot I96 GANGRENE, NOT ELSEWHERE CLASSIFIED 10/01/2019 SABINO YANES MD Ot L22 DIAPER DERMATITIS 10/01/2019 JOAQUÍN WALKER, SABINO Buchaann Ot L98.491 NON-PRS CHRONIC ULCER SKIN/ SITES LIMITE 10/01/2019 SABINO YANES MD Ot Q05 .8 SACRAL SPINA BIFIDA WITHOUT HYDROCEPHALU 10/01/2019 SABINO YANES MD Ot G96 .0 CEREBROSPINAL FLUID LEAK 10/01/2019 SABINO YANES MD Ot I96 GANGRENE, NOT ELSEWHERE CLASSIFIED 10/01/2019 SABINO YANES MD Ot L22 DIAPER DERMATITIS 10/01/2019 SABINO YANES MD Ot L98.491 NON-PRS CHRONIC ULCER SKIN/ SITES LIMITE 10/01/2019 SABINO YANES MD Ot Q05 .2 LUMBAR SPINA BIFIDA WITH HYDROCEPHALUS 10/01/2019 SABINO YANES MD Ot G96 .0 CEREBROSPINAL FLUID LEAK 10/01/2019 SABINO YANES MD Ot I96 GANGRENE, NOT ELSEWHERE CLASSIFIED 10/01/2019 SABINO YANES MD Ot L22 DIAPER DERMATITIS 10/01/2019 JOAQUÍN WALKER, SABINO Buchanan Ot L98.491 NON-PRS CHRONIC ULCER SKIN/ SITES LIMITE 10/01/2019 SABINO YANES MD Ot Q05 .3 SACRAL SPINA BIFIDA WITH HYDROCEPHALUS 10/01/2019 SABINO YANES MD Ot G96 .0 CEREBROSPINAL FLUID LEAK 10/01/2019 SABINO YANES MD, Ot L22 DIAPER DERMATITIS 10/01/2019 SABINO YANES MD, Ot L98.491 NON-PRS CHRONIC ULCER SKIN/ SITES LIMITE 10/01/2019 SABINO YANES MD, Ot Q05 .3 SACRAL SPINA BIFIDA WITH HYDROCEPHALUS Procedures There is no data. Results Test Result Range VIT B-12 - 02/27/18 15:01 Vitamin B12 343.00 pg/mL 213.00-816.00 Lipid Panel - 09/22/18 10:30 C/HDL 3.9 3.7-6.7 Cholesterol 171 mg/dL 100-240 HDL 44 mg/dL 30-85 LDL-Calculated 97 mg/dL 0-100 Trig 152 mg/dL 35-160 VLDL 30 mg/dL 0-42 Urinalysis - 12/29/18 11:10 Icotest N/A Negative Urine Crystals 2+ Triple Phosphate; 4+ Amorphous Urine Volume Urine Volume Sufficient (10mL) Urine Yeast No Yeast present Urine-Appearance Cloudy Clear Urine-Bacteria 4+ Urine-Bilirubin Negative Negative Urine-Blood 1+ Negative Urine-Color Yellow Colorless-Lt. [place] ow Urine-Glucose Negative Negative Urine-Ketones Negative Negative Urine-Leukocytes 2+ Negative Urine-Nitrite Negative Negative Urine-Other Culture to follow Urine-pH 7.5 5-8.5 Urine-Protein 1+ Negative Urine-RBC TNTC Urine-Specific [place] 1.015 1.000-1 .030 Urine-WBC TNTC Urobilinogen 0.2 E.U./dL 0.2-1.0 Urine Culture - 12/29/18 11:10 PRELIM CULTURE RESULTS 50,000-100,000 Gram N egative JENNIFER / ID to Follow [id number],000 Gram Positive Mixed Aggie Probable Contaminant MEDIA PLATED Setup at 11:45 on 12/29/2018 CULTURE SOURCE urostomy Sensi - 12/29/18 11:10 Ampicillin/Sulbactam 16/8 Ampicillin 16 Amoxicillin/K Clavulanate >16/8 Ceftriaxone <=8 Ciprofloxacin <=1 Nitrofurantoin >64 Gentamicin <=4 Levofloxacin <=2 Trimethoprim/ Sulfamethoxazole <=2/38 Tetracycline >8 Amikacin <=16 Aztreonam 16 Ceftazidime 4 Ceftazidime/K Clavulanate <=0.25 Cephalothin >16 Cefotaxime <=2 Cefotaxime/K Clavulanate <=0.5 Cefoxitin <=8 Cefazolin >16 Cefepime <=8 Cefuroxime 16 Ertapenem <=1 Imipenem <=4 Meropenem <=4 Piperacillin/Tazobactam <=16 Piperacillin <=16 Tigecycline <=2 Tobramycin <=4 FINAL CULTURE RESULTS Proteus vulgaris (Isolate 2) Sensi - 12/29/18 11:10 FINAL CULTURE RESULTS Escherichia coli (Isolate 1) Ampicillin/Sulbactam <=8/4 Ampicillin >16 Amoxicillin/K Clavulanate <=8/4 Ceftriaxone >32 Ciprofloxacin >2 Nitrofurantoin <=32 Gentamicin <=4 Levofloxacin >4 Trimethoprim/ Sulfamethoxazole <=2/38 Tetracycline <=4 Amikacin <=16 Aztreonam 16 Ceftazidime 16 Ceftazidime/K Clavulanate <=0.25 Cephalothin >16 Cefotaxime >32 Cefotaxime/K Clavulanate <=0.5 Cefoxitin <=8 Cefazolin >16 Cefepime >16 Cefuroxime >16 Ertapenem <=1 Imipenem <=4 Meropenem <=4 Piperacillin/Tazobactam <=16 Piperacillin >64 Tigecycline <=2 Tobramycin <=4 Comprehensive Metabolic Panel - 12/29/18 11:15 Albumin 3.8 g/dL 3.6-5.1 ALP 136 U/L 35-130 ALT 15 U/L 6-45 Anion Gap 13 6-14 AST 14 U/L 2-40 BUN 23 mg/dL 5-25 Calcium 9.6 mg/dL 8.3-10.4 Chloride 114 mmol/L 95-114 CO2 28 mEq/L 22-33 Creat 0.77 mg/dL 0.50-1.50 eGFR 102 mL/min/1.73m2 >59 Globulin 2.9 g/dL 2.3-3.5 Glucose 90 mg/dL 70-110 Osmo 314 280-295 Potassium 3.9 mmol/L 3.5-5.3 Sodium 151 mmol/L 134-148 TBil 0.3 mg/dL 0.2-1.2 TP 6.7 g/dL 6.0-8.3 EKG - 12/29/18 11:25 EKG Complete Other Culture - 02/04/19 13:45 PRELIM CULTURE RESULTS Abundant Gram Negativ e Lactose 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 JENNIFER / ID to Follow. MEDIA PLATED Setup at 14:36 on 02/05/2019 Sensi - 02/04/19 13:45 FINAL CULTURE RESULTS Abundant Escherichia c quan ESBL (Isolate 1) Ampicillin/Sulbactam <=8/4 Ampicillin >16 Amoxicillin/K Clavulanate <=8/4 Ceftriaxone >32 Ciprofloxacin >2 Nitrofurantoin <=32 Gentamicin <=4 Levofloxacin >4 Trimethoprim/ Sulfamethoxazole >2/38 Tetracycline >8 Amikacin <=16 Aztreonam >16 Ceftazidime 16 Ceftazidime/K Clavulanate <=0.25 Cephalothin >16 Cefotaxime >32 Cefotaxime/K Clavulanate <=0.5 Cefoxitin <=8 Cefazolin >16 Cefepime >16 Cefuroxime >16 Ertapenem <=1 Imipenem <=4 Meropenem <=4 Piperacillin/Tazobactam <=16 Piperacillin >64 Tigecycline <=2 Tobramycin <=4 Erythrocyte sedimentation rate by liam gren method - 02/05/19 13:45 Erythrocyte sedimentation rate by westergren method 8 mm 0- 30 Comprehensive Metabolic Panel - 02/10/19 19:50 Albumin 4.2 g/dL 3.6-5.1 ALP 141 U/L 35-130 ALT 16 U/L 6-45 Anion Gap 17 6-14 AST 16 U/L 2-40 BUN 18 mg/dL 5-25 Calcium 9.5 mg/dL 8.3-10.4 Chloride 108 mmol/L 95-114 CO2 23 mEq/L 22-33 Creat 1.19 mg/dL 0.50-1.50 eGFR 62 mL/min/1.73m2 >59 Globulin 2.8 g/dL 2.3-3.5 Glucose 291 mg/dL 70-110 Osmo 309 280-295 Potassium 3.5 mmol/L 3.5-5.3 Sodium 144 mmol/L 134-148 TBil 0.2 mg/dL 0.2-1.2 TP 7.0 g/dL 6.0-8.3 D-Dimer - 02/26/19 23:00 DDimer 251.00 ng/mL 21.00-229.00 PSA Yearly Screen - 09/14/19 14:00 PSA TOTAL 0.2 ng/mL 0.0-4.0 Encounters ACCT No. Visit Date/Time Discharge Status Pt. Type Provider Facility Loc./Unit Complaint [id number] 09/14/2019 14:54:00 09/14/2019 23:59 :00 DIS Outpatient DAVID PILLAI [id number] 09/14/2019 14:00:00 09/14/2019 23:59 :00 DIS Outpatient DAVID PILLAI [id number] 05/13/2019 15:43:00 05/13/2019 23:59: 00 DIS Outpatient DAVID PILLAI [id number] 02/26/2019 22:35:00 02/26/2019 23:50: 00 [id number]/10/2019 18:55:00 02/11/2019 00:00: 00 [id number]/04/2019 14:31:00 02/04/2019 23:59: 00 DIS Outpatient DAVID PILLAI [id number] 12/29/2018 10:50:00 12/29/2018 13:17: 00 DIS Outpatient Nila Chi [facility] ER [id number] 09/22/2018 13:06:00 09/22/2018 23:59: 00 DIS Outpatient Quin Urban [id number] 03/24/2018 17:33:00 03/24/2018 23:59: 00 DIS Outpatient DAVID PILLAI [id number] 02/27/2018 15:00:00 02/27/2018 23:59: 00 DIS Outpatient DAVID PILLAI [id number] 02/23/2019 13:30:00 Document Registration [id number] 02/04/2019 13:00:00 Document Registration [id number] 01/22/2019 12:54:00 Document Registration [id number] 12/31/2018 14:30:00 Document Registration [id number] 12/29/2018 11:17:18 Document Registration [id number] 08/13/2018 14:00:00 Document Registration [id number] 05/19/2018 14:00:00 Document Registration [id number] 04/16/2018 14:00:00 Document Registration [id number] 03/24/2018 14:00:00 Document Registration [id number] 02/26/2018 14:10:00 Document Registration [id number] 10/01/2019 08:25:00 10:15:00 DIS Outpatient JORGE ANSARI MD [facility] CATARACT LEFT EYE [id number] 09/29/2019 06:05:00 14:56:00 DIS Outpatient JORGE ANSARI MD [facility] PREOP CATARACT LEFT EYE [id number] 07/30/2019 11:30:00 23:59:59 CLS Preadmit JORGE ANSARI MD [facility] CATARACT RIGHT EYE [id number] 07/27/2019 12:59:00 23:59:59 CLS Outpatient SABINO YANES MD [id number] 06/29/2019 14:58:00 23:59:59 CLS Outpatient SABINO YANES MD [facility] [id number] 06/01/2019 15:05:00 23:59:59 CLS Outpatient SABINO YANES MD [facility] [id number] 05/04/2019 14:57:00 23:59:59 CLS Outpatient SABINO YANES MD [facility] [id number] 04/06/2019 14:33:00 23:59:59 CLS Outpatient SABINO YANES MD [facility] [id number] 03/23/2019 14:16:00 23:59:59 CLS Outpatient SABINO YANES MD [facility] [id number] 03/02/2019 14:13:00 08/06/2 019 23:59:59 CLS Outpatient JOAQUÍN MD, SABINO G [facility] WOUNDCARE [id number] 02/09/2019 12:51:00 019 23:59:59 CLS Outpatient SABINO YANES MD [facility] [id number] 02/05/2019 15:34:00 23:59:59 CLS Outpatient DAVID PILLAI MD [facility] LABNPT [id number] 12/08/2017 13:30:00 018 23:59:59 CLS Outpatient SABINO YANES MD [facility] W[facility]CARE [id number] 12/01/2017 13:57:00 018 23:59:59 CLS Outpatient SABINO YANES MD [facility] [id number] 04/02/2017 13:02:00 017 23:59:59 CLS Preadmit NINI RASHEED APRN [facility] RAD PNEUMONIA AND ABORMAL C XR [id number] 10/15/2019 10:00:00 P EN Preadmit COTY WALKER, [facility]
== END 2019-10-01 10:15 | disposition home or self-care (01) ==
LOC: SDC 08:25
PROVIDERS: ATTEND Specialist
DX: H25.12 Age-related nuclear cataract, left eye (principal); E78.00 Pure hypercholesterolemia, unspecified; F41.9 Anxiety disorder, unspecified; E78.5 Hyperlipidemia, unspecified; K21.9 Gastro-esophageal reflux disease without esophagitis; Z79.899 Other long term (current) drug therapy

== ENCOUNTER 2020-04-10 17:59 | Observation (INO) | payer MEDICARE, MEDICAID ==
[~2020-04-10] VITALS: Ht 152 cm; Wt 62.5 kg
[~2020-04-10 17:59] MED LIST changes: -PANT40TA3 PO; +PANT40TA52 PO
[2020-04-10] MEDS ORDERED: PATIENT MAY USE OWN MEDS, ALL PO SCH (18:30)
[2020-04-10] MEDS ORDERED: BISACODYL 10 MG SUPP (DULCOLAX) PR PRN (18:30)
[2020-04-10] MEDS ORDERED: ACETAMINOPHEN 325 MG TABLET PO PRN (18:30)
[2020-04-10] MEDS ORDERED: ENOXAPARIN 40 MG/0.4 ML (LOVENOX) SYR SC SCH (18:30)
[2020-04-10] MEDS ORDERED: ONDANSETRON 4 MG (ZOFRAN) ORAL DISSOLVE TAB PO PRN (18:30)
[2020-04-10] MEDS ORDERED: ONDANSETRON 4 MG/2 ML (SDV) Z0FRAN IV PRN (18:30)
[2020-04-10] MEDS ORDERED: ANTACID SUSP 30 ML UDC (MYLANTA) PO PRN (18:30)
[2020-04-10] MEDS ORDERED: polyethylene glycoL POWDER 17 GM (MIRALAX) PACK PO PRN (18:30)
[2020-04-10] MEDS ORDERED: MELATONIN 3 MG TABLET PO PRN (18:30)
[2020-04-10 19:51] VITALS: BP 136/78
[2020-04-10] MEDS ORDERED: ENOXAPARIN 100 MG/1 ML (LOVENOX) SYR SC SCH (21:15)
[2020-04-10] MEDS: inSUlin ASPART (NovoLOG) 1 UNIT/0.01 ML (CHARGE PER UNIT) SC SCH (21:31)
[2020-04-11] VITALS: BP 109/72
[2020-04-11] MEDS: diphenhydrAMINE 25 MG TAB (BENADRYL) PO PRN ×2 (01:45→06:28)
[2020-04-11] MEDS: ENOXAPARIN 60 MG/0.6 ML (LOVENOX) SYR SC SCH ×2 (01:45→13:18)
[2020-04-11 04:00] VITALS: BP 138/83
[2020-04-11 04:15] LABS: BASOPHILS % (AUTO) 0 % (0-10); EOSINOPHILS # (AUTO) 0.2 10^3/uL (0.0-0.3); EOSINOPHILS % (AUTO) 3 % (0-10); HEMATOCRIT 41 % (40-54); LYMPHOCYTES # (AUTO) 2.1 X 10^3 (1.0-4.0); LYMPHOCYTES % (AUTO) 30 % (12-44); MEAN CORPUSCULAR HEMOGLOBIN 28 PG (25-34); MEAN CORPUSCULAR HGB CONC 32 G/DL (32-36); MEAN CORPUSCULAR VOLUME 89 FL (80-99); MEAN PLATELET VOLUME 10.8 FL (7.4-10.4); MONOCYTES # (AUTO) 0.7 X 10^3 (0.0-1.0); MONOCYTES % (AUTO) 10 % (0-12); NEUTROPHILS # (AUTO) 4.1 X 10^3 (1.8-7.8); NEUTROPHILS % (AUTO) 57 % (42-75); PLATELET COUNT 284 10^3/uL (130-400); WHITE BLOOD COUNT 7.1 10^3/uL (4.3-11.0)
[2020-04-11 04:30] LABS: CHLORIDE 115 MMOL/L (98-107); POTASSIUM 3.4 MMOL/L (3.6-5.0); SODIUM 151 MMOL/L (135-145)
[2020-04-11 04:32] LABS: TRIGLYCERIDES 129 MG/DL (<150); VLDL CHOLESTEROL 26 MG/DL (5-40)
[2020-04-11 04:33] LABS: GLUCOSE 97 MG/DL (70-105)
[2020-04-11 04:34] LABS: CARBON DIOXIDE 23 MMOL/L (21-32)
[2020-04-11 04:36] LABS: CREATININE SERUM 0.78 MG/DL (0.60-1.30); GFR ESTIMATED > 60
[2020-04-11 04:37] LABS: BUN/CREATININE RATIO 24; CHOLESTEROL 157 MG/DL (< 200)
[2020-04-11 04:38] LABS: HDL CHOLESTEROL 42 MG/DL (40-60)
[2020-04-11] MEDS: inSUlin ASPART (NovoLOG) 1 UNIT/0.01 ML (CHARGE PER UNIT) SC SCH ×3 (05:38→16:18)
[2020-04-11] MEDS ORDERED: FLU QUADRIvalent (3YOA+) 60 mcg/0.5 ml 2020-21 (AFLURIA) IM ONE (07:15)
[2020-04-11 07:59] VITALS: BP 116/71
--- NOTE | 2020-04-11 08:00 | NUR ---
PT C/O MEDIAL CP, WORSE W/ INSPIRATION, RATES PX 10/10. APPEARS SLIGHTLY ANXIOUS. VSS, EKG OBTAINED. DR MCCLURE UPDATED ON PT'S CONDITION. TO ENTER NEW ORDERS.
[2020-04-11] MEDS ORDERED: NITROGLYCERIN 0.4 MG SL TABS BTL 25'S SL PRN (08:15)
[2020-04-11] MEDS ORDERED: REGADENOSON 0.4 MG/5 ML SYR (LEXISCAN) IV ONE ×2 (08:15→11:45)
[2020-04-11] MEDS ORDERED: NS IV 1000 ML 1,000 ML IV SCH (08:30)
--- NOTE | 2020-04-11 08:30 | Consultation-Cardiology ---
HPI-Cardiology Cardiology Consultation Date of Consultation 04/11/20 Date of Admission Time Seen by Provider: 08:27 Indication: chest pain HPI 64 years old gentleman with history of spina bifida, started to have chest pain persisted severe in the retrosternal area, EKG showed T-wave inversion in the anterolateral leads. Went to the emergency room in [place] and given 2.5 mg of I V Lopressor which relieved his chest pain and improve his EKG. This morning he was feeling better but still having some chest discomfort that became worse later. Still having T-wave inversion in the anterolateral leads. Cardiac enzymes were negative. Home Medications & Allergies Allergies: Coded Allergies: No Known Drug Allergies (Unverified , 09/29/19) Home Medication List Reviewed: Yes EFC-Vkbzka-Mmwxcm Hx Patient Social History Marital Status: single Employed/Student: unemployed Recent Foreign Travel: No Recent Infectious Disease Expo: No Past Medical History Discussed below Review of Systems-General Review of Systems Constitutional: no symptoms reported, see HPI EENTM: see HPI, no symptoms reported Respiratory: no symptoms reported, see HPI Cardiovascular: see HPI, chest pain; No edema, No Hx of Intervention, No palpitations, No syncope, No vascular heart diseas, No other Gastrointestinal: no symptoms reported, see HPI Genitourinary: no symptoms reported, see HPI Musculoskeletal: no symptoms reported, see HPI Skin: no symptoms reported, see HPI Psychiatric/Neurological: No Symptoms Reported, See HPI Reviewed Test Results Reviewed Test Results Lab Laboratory Tests Test 04/10/20 19:47 04/10/20 21:31 04/11/20 03:51 Range/Units Troponin I < 0.028 < 0.028 <0.028 NG/ML Glucometer 126 H 70-110 MG/DL White Blood Count 7.1 4.3-11.0 10^3/uL Red Blood Count 4.60 4.35-5.85 10^6/uL Hemoglobin 13.0 L 13.3-17.7 G/DL Hematocrit 41 40-54 % Mean Corpuscular Volume 89 80-99 FL Mean Corpuscular Hemoglobin 28 25-34 PG Mean Corpuscular Hemoglobin Concent 32 32-36 G/DL Red Cell Distribution Width 15.6 H 10.0-14.5 % Platelet Count 284 130-400 10^3/uL Mean Platelet Volume 10.8 H 7.4-10.4 FL Neutrophils (%) (Auto) 57 42-75 % Lymphocytes (%) (Auto) 30 12-44 % Monocytes (%) (Auto) 10 0-12 % Eosinophils (%) (Auto) 3 0-10 % Basophils (%) (Auto) 0 0-10 % Neutrophils # (Auto) 4.1 1.8-7.8 X 10^3 Lymphocytes # (Auto) 2.1 1.0-4.0 X 10^3 Monocytes # (Auto) 0.7 0.0-1.0 X 10^3 Eosinophils # (Auto) 0.2 0.0-0.3 10^3/uL Basophils # (Auto) 0.0 0.0-0.1 10^3/uL Sodium Level 151 H 135-145 MMOL/L Potassium Level 3.4 L 3.6-5.0 MMOL/L Chloride Level 115 H 98-107 MMOL/L Carbon Dioxide Level 23 21-32 MMOL/L Anion Gap 13 5-14 MMOL/L Blood Urea Nitrogen 19 H 7-18 MG/DL Creatinine 0.78 0.60-1.30 MG/DL Estimat Glomerular Filtration Rate > 60 BUN/Creatinine Ratio 24 Glucose Level 97 70-105 MG/DL Calcium Level 9.0 8.5-10.1 MG/DL Triglycerides Level 129 <150 MG/DL Cholesterol Level 157 < 200 MG/DL LDL Cholesterol Direct 104 1-129 MG/DL VLDL Cholesterol 26 5-40 MG/DL HDL Cholesterol 42 40-60 MG/DL Physical Exam Physical Exam Vital Signs Vital Signs - First Documented Capillary Refill : Less Than 3 Seconds Height, Weight, BMI Height: '" Weight: lbs. oz. kg; 27.22 BMI Method: General Appearance: No Apparent Distress, WD/WN Eyes: Bilateral Eye Normal Inspection, Bilateral Eye PERRL, Bilateral Eye EOMI HEENT: PERRL/EOMI, TMs Normal, Normal ENT Inspection, Pharynx Normal, Moist Mucous Membranes Neck: Full Range of Motion, Normal Inspection, Non Tender, Supple, Carotid Bruit Respiratory: Chest Non Tender, Normal Breath Sounds, No Accessory Muscle Use, No Respiratory Distress Cardiovascular: Regular Rate, Rhythm, No Edema, No Gallop, No JVD, No Murmur, Normal Peripheral Pulses Gastrointestinal: Normal Bowel Sounds, No Organomegaly, No Pulsatile Mass, Non Tender, Soft Back: Normal Inspection, No CVA Tenderness, No Vertebral Tenderness, Other (history of spina bifida) Extremity: Normal Capillary Refill, Normal Inspection, No Calf Tenderness, No Pedal Edema, Other (spina bifida) Neurologic/Psychiatric: Alert, Oriented x3, Normal Mood/Affect, Other (spina bifida with weakness in the lower extremities) Skin: Normal Color, Warm/Dry Lymphatic: No Adenopathy A/P-Cardiology Admission Diagnosis Chest pain Hypokalemia Hypernatremia Spina bifida Assessment/Plan Chest pain resembling angina, EKG changes. Nondiagnostic. Improved after IV Lopressor. Currently having active chest pain. I will give him sublingual nitroglycerin, continue to monitor response. Planning to evaluate Lexiscan stress test Hypokalemia, hypernatremia, start IV fluid and monitor Spina bifida. Cannot take care of himself, have a care Provider Clinical Quality Measures DVT/VTE Risk/Contraindication: Risk Factor Score Per Nursin RFS Level Per Nursing on Admit: 4+=Very High NELSON MCCLURE MD Apr 11, 2020 8:30 am
--- NOTE | 2020-04-11 08:57 | NUR ---
PT REPORTS CP IS IMPROVED AFTER RECEIVING NITRO.
[2020-04-11] MEDS ORDERED: ASPIRIN 81 MG CHEW (CHILDREN'S ASA) PO SCH (09:00)
[2020-04-11] MEDS ORDERED: PANTOPRAZOLE 40 MG (PROTONIX) TAB PO SCH (09:00)
[2020-04-11] MEDS ORDERED: CATHETER FLUSH 10 ML SYR IV PRN (10:30)
--- NOTE | 2020-04-11 10:51 | NUR ---
PT LEFT FLOOR VIA WC FOR [employer] W/ STAFF.
[2020-04-11 12:01] VITALS: BP 96/54
--- NOTE | 2020-04-11 13:00 | NUR ---
pt back from [facility].
[2020-04-11 13:12] VITALS: BP 132/76
--- NOTE | 2020-04-11 13:42 | History & Physical-Hospitalist ---
History of Present Illness HPI/Chief Complaint Trey Ga is a 64-year-old male who is wheelchair bound due to spina bifida who presented with chest pain. He reports that the pain started in the center of his chest. He denies any radiation of the pain including to his neck, arm, or jaw. He denies any shortness of breath. He denies any nausea or vomiting. He denies any diaphoresis. He denies any fevers or chills. He denies any cough. He denies any abdominal pain. He denies any diarrhea. He has no other complaints or concerns. His never had any history of coronary artery disease. He has never had chest pain like this before. Source: patient Exam Limitations: no limitations Date Seen 04/11/20 Time Seen by a Provider: 08:50 Attending Physician Seth Allen MD PCP Ethel Downing MD Referring Physician Date of Admission Apr 10, 2020 at 19:31 Home Medications & Allergies Home Medications Reviewed patient Home Medication Reconciliation performed by pharmacy medication reconciliations missile technician and/or nursing. Patients Allergies have been reviewed. Allergies Allergies Coded Allergies No Known Drug Allergies (Unverified09/29/19) Past Khjagda-Tzosxj-Xsoebt Hx Past Med/Social Hx: Reviewed Nursing Past Med/Soc Hx Patient Social History Marrital Status: single Employed/Student: unemployed Recent Foreign Travel: No Contact w/other who traveled: No Recent Infectious Disease Expo: No Review of Systems Constitutional: no symptoms reported EENTM: no symptoms reported Respiratory: no symptoms reported Cardiovascular: chest pain Gastrointestinal: no symptoms reported Genitourinary: no symptoms reported Musculoskeletal: no symptoms reported Skin: no symptoms reported Psychiatric/Neurological: No Symptoms Reported Physical Exam Physical Exam Vital Signs Vital Signs - First Documented Capillary Refill : Less Than 3 Seconds Height, Weight, BMI Height: '" Weight: lbs. oz. kg; 27.22 BMI Method: General Appearance: No Apparent Distress, WD/WN HEENT: PERRL/EOMI, Pharynx Normal Neck: Normal Inspection, Supple Respiratory: Lungs Clear, Normal Breath Sounds, No Respiratory Distress Cardiovascular: Regular Rate, Rhythm, No Edema, No Murmur Gastrointestinal: Normal Bowel Sounds, Non Tender, Soft Extremity: Normal Inspection, Non Tender, No Pedal Edema Neurologic/Psychiatric: Alert, Oriented x3, Normal Mood/Affect, Motor Weakness Skin: Normal Color, Warm/Dry Results Results/Procedures Labs Laboratory Tests 04/11/20 03:51 Patient resulted labs reviewed. Imaging: Reviewed Imaging Report Assessment/Plan Admission Diagnosis chest pain Admission Status: Observation Assessment and Plan Chest pain Troponin negative 3 EKG at [facility] reportedly with T-wave inversions Cardiology consulted, appreciate assistance Echocardiogram ordered Planning for stress test today Continue aspirin and statin Hypernatremia Transition to D5W Hypokalemia Monitor and replace as needed HLD GERD Depression Anxiety Continue home meds DVT prophylaxis: Lovenox Diagnosis/Problems Diagnosis/Problems (1) Chest pain Status: Acute Clinical Quality Measures DVT/VTE Risk/Contraindication: Risk Factor Score Per Nursin RFS Level Per Nursing on Admit: 4+=Very High SETH ALLEN MD Apr 11, 2020 13:42
[2020-04-11] MEDS ORDERED: D5W 1000 ML IV SOLUTION 1,000 ML IV SCH (13:45)
[2020-04-11] MEDS ORDERED: POTA10TA PO (15:25)
[2020-04-11] MEDS ORDERED: COLL30OI TOP (15:25)
[2020-04-11] MEDS ORDERED: MELA10TA2 PO (15:25)
[2020-04-11] MEDS ORDERED: ALPR-114 PO (15:25)
--- NOTE | 2020-04-11 15:26 | NUR ---
SPOKE WITH THE PT AND HE WANTED ME TO CALL HIS AUNT BRENDA SINCE SHE TAKES CARE OF HIS MEDICATIONS. I CALLED BRENDA AND WENT THRU THE EXT MED HISTORY TO COMPLETE THE MED REC BRENDA WAS ABLE TO NAME ALL HIS MEDICATIONS WELL WHEN/HOW HE TAKES EACH ON 04-10-2020 THE EXT MED HISTORY SHOWS POTASSIUM CL 10MEQ #60/30 BUT WHEN I SPOKE WITH BRENDAN I WAS TOLD THEY ARE NOT FILLING THAT MEDICATION- BUT THEY HAVE FILLED THE POTASSIUM 10MEQ 1 TAB TID. XANAX 0.5MG SHOW ON THE EXT MED HISTORY HOWEVER PT TAKING XANAX ER 0.5MG (THIS IS SHOWN ON THE MED REC JUST FARTHER DOWN) AND LIKE ABOVE BRENDAN DIDNT KNOW ANYTHING ABOUT FILLING THAT PLAIN XANAX OTC MEDS: VITAMIN C MELATONIN 10MG
[2020-04-11 16:00] VITALS: BP 123/68
[2020-04-11] MEDS ORDERED: PANT40TA52 PO (17:04)
[2020-04-11] MEDS ORDERED: ISOS30TA3 PO (17:04)
--- NOTE | 2020-04-12 11:26 | Cardiology Stress Test Report ---
Stress Test Report Date of Procedure/Referring: Date of Procedure: Apr 11, 2020 PCP Najma Baker MD Admitting Physician Ethel Downing MD Indications: Chest pain Baseline Heart Rate: 53 Baseline Blood Pressure: Blood Pressure Systolic: 123 Blood Pressure Diastolic: 68 Baseline Vitals Vital Signs Date Time Temp Pulse Resp B/P (MAP) Pulse Ox O2 Delivery O2 Flow Rate FiO2 04/10/20 19:51 37.0 57 18 136/78 95 Room Air 95.00 Baseline EKG: Baseline EKG: normal sinus rhythm Summary After explaining the procedure to the patient, he signed a consent and then brought to the stress nuclear laboratory. Patient received 0.4 mg Lexiscan for stress test, ECG, heart rate and blood pressure were monitored continuously. Resting and stress dose of radio tracer were injected, imaging was acquired and reviewed in short axis, horizontal long axis and vertical long axis views. TID: 1 SSS: 9 SDS: 1 EF: 69 1. Patient tolerated Lexiscan well 2. Mild decreased uptake at the mid to apical anterior septum with no significant reversibility, no significant ischemia or infarction on SPECT images 3. Normal left ventricular size, EF 69 percent NELSON MCCLURE MD Apr 12, 2020 11:26
== END 2020-04-11 18:25 | disposition home or self-care (01) ==
LOC: CSD 19:31
PROVIDERS: ADMIT Internal Medicine; ATTEND Internal Medicine
DX: R07.9 Chest pain, unspecified (principal); E87.0 Hyperosmolality and hypernatremia; E87.6 Hypokalemia; E78.5 Hyperlipidemia, unspecified; K21.9 Gastro-esophageal reflux disease without esophagitis; F32.9 Major depressive disorder, single episode, unspecified; F41.9 Anxiety disorder, unspecified; I36.1 Nonrheumatic tricuspid (valve) insufficiency; Q05.9 Spina bifida, unspecified; Z79.899 Other long term (current) drug therapy
CPT/HCPCS: 78452; 80048; 80061; 82962 ×2; 84484 ×2; 85025; 93005; 93017; 93306; A9502; G0378; G0379; 36415; 99211

== ENCOUNTER 2020-04-17 11:29 | Emergency (ER) | payer MEDICARE, MEDICAID ==
[~2020-04-17] VITALS: Ht 160 cm; Wt 61.2 kg
[~2020-04-17 11:29] MED LIST changes: +ALPR-114 PO; +COLL30OI TOP; +ISOS30TA3 PO; +MELA10TA2 PO; +POTA10TA PO
--- NOTE | 2020-04-17 11:40 | ED General ---
General Stated Complaint: CHEST PAIN Source of Information: Patient Exam Limitations: No Limitations History of Present Illness Date Seen by Provider: Apr 17, 2020 Time Seen by Provider: 11:38 Initial Comments To ER with c/o epigastric /left lower chest pain. This began this morning while awakening at about 7 AM and has been constant since then. The pain is sharp in nature and worsened by deep breathing. No cough. No injury. No history of this. Timing/Duration: 4-6 Hours Severity: Moderate Associated Systoms: Denies Symptoms Allergies and Home Medications Allergies Coded Allergies: No Known Drug Allergies (Unverified , 09/29/19) Home Medications Alprazolam 0.5 Mg Tab.er.24h, 0.5 MG PO DAILY, (Reported) Ascorbic Acid 500 Mg Capsule.er, 500 MG PO DAILY, (Reported) Bumetanide 1 Mg Tablet, 1 MG PO DAILY, (Reported) Citalopram Hydrobromide 40 Mg Tablet, 40 MG PO DAILY, (Reported) Collagenase 30 Gm Oint..gm., 1 APPLIC TOP DAILY PRN for RASH, (Reported) Isosorbide Mononitrate 30 Mg Tab.er.24h, 30 MG PO DAILY Prescribed by: SETH ALLEN on 04/11/20 1704 Lovastatin 10 Mg Tablet, 10 MG PO HS, (Reported) Melatonin 10 Mg Tablet, 10 MG PO HS, (Reported) Mirtazapine 15 Mg Tablet, 15 MG PO HS, (Reported) Pantoprazole Sodium 40 Mg Tablet.dr, 40 MG PO BID TAKE 40 MG TWICE DAILY X 2 MONTHS, THEN RESUME 40 MG DAILY. Prescribed by: SETH ALLEN on 04/11/20 1704 Potassium Chloride 10 Meq Tablet.er, 10 MEQ PO TID, (Reported) Patient Home Medication List Home Medication List Reviewed: Yes Review of Systems Review of Systems Constitutional: see HPI; No chills, No fever EENTM: see HPI Respiratory: no symptoms reported; No dyspnea on exertion, No short of breath Cardiovascular: see HPI, chest pain Gastrointestinal: abdominal pain; No nausea, No vomiting Genitourinary: no symptoms reported Musculoskeletal: no symptoms reported Skin: no symptoms reported Psychiatric/Neurological: No Symptoms Reported Hematologic/Lymphatic: No Symptoms Reported Immunological/Allergic: no symptoms reported Physical Exam Vital Signs Vital Signs - First Documented 04/17/20 11:57 Temp 36.0 Pulse 65 Resp 18 B/P (MAP) 123/71 (88) Pulse Ox 94 Capillary Refill : Height, Weight, BMI Height: '" Weight: lbs. oz. kg; 27.22 BMI Method: General Appearance: No Apparent Distress, WD/WN, Anxious Eyes: Bilateral Eye Normal Inspection, Bilateral Eye PERRL ( R), Bilateral Eye EOMI HEENT: PERRL/EOMI, TMs Normal Respiratory: Normal Breath Sounds, No Accessory Muscle Use, No Respiratory Distress Cardiovascular: Regular Rate, Rhythm, Normal Peripheral Pulses, Other (The xiphoid process is very tender to palpation and this does reproduce his pain) Gastrointestinal: Non Tender, Soft Extremity: Normal Capillary Refill, Normal Inspection Neurologic/Psychiatric: Alert, Oriented x3 Skin: Normal Color, Warm/Dry Progress/Results/Core Measures Suspected Sepsis SIRS Temperature: Pulse: Respiratory Rate: Laboratory Tests 04/17/20 11:45: White Blood Count 5.8 Blood Pressure / Mean: Laboratory Tests 04/17/20 11:45: Creatinine 0.73, INR Comment 1.0, Platelet Count 279, Total Bilirubin 0.3 Results/Orders Lab Results Laboratory Tests Test 04/17/20 11:45 Range/Units White Blood Count 5.8 4.3-11.0 10^3/uL Red Blood Count 4.94 4.35-5.85 10^6/uL Hemoglobin 13.6 13.3-17.7 G/DL Hematocrit 44 40-54 % Mean Corpuscular Volume 89 80-99 FL Mean Corpuscular Hemoglobin 28 25-34 PG Mean Corpuscular Hemoglobin Concent 31 L 32-36 G/DL Red Cell Distribution Width 16.1 H 10.0-14.5 % Platelet Count 279 130-400 10^3/uL Mean Platelet Volume 10.1 7.4-10.4 FL Neutrophils (%) (Auto) 62 42-75 % Lymphocytes (%) (Auto) 22 12-44 % Monocytes (%) (Auto) 9 0-12 % Eosinophils (%) (Auto) 7 0-10 % Basophils (%) (Auto) 0 0-10 % Neutrophils # (Auto) 3.6 1.8-7.8 X 10^3 Lymphocytes # (Auto) 1.2 1.0-4.0 X 10^3 Monocytes # (Auto) 0.5 0.0-1.0 X 10^3 Eosinophils # (Auto) 0.4 H 0.0-0.3 10^3/uL Basophils # (Auto) 0.0 0.0-0.1 10^3/uL Prothrombin Time 13.3 12.2-14.7 SEC INR Comment 1.0 0.8-1.4 Activated Partial Thromboplast Time 28 24-35 SEC Sodium Level 150 H 135-145 MMOL/L Potassium Level 3.9 3.6-5.0 MMOL/L Chloride Level 112 H 98-107 MMOL/L Carbon Dioxide Level 27 21-32 MMOL/L Anion Gap 11 5-14 MMOL/L Blood Urea Nitrogen 17 7-18 MG/DL Creatinine 0.73 0.60-1.30 MG/DL Estimat Glomerular Filtration Rate > 60 BUN/Creatinine Ratio 23 Glucose Level 101 70-105 MG/DL Calcium Level 9.1 8.5-10.1 MG/DL Corrected Calcium 9.0 8.5-10.1 MG/DL Magnesium Level 2.2 1.6-2.4 MG/DL Total Bilirubin 0.3 0.1-1.0 MG/DL Aspartate Amino Transf (AST/SGOT) 17 5-34 U/L Alanine Aminotransferase (ALT/SGPT) 17 0-55 U/L Alkaline Phosphatase 130 40-136 U/L Myoglobin 34.1 10.0-92.0 NG/ML Troponin I < 0.028 <0.028 NG/ML B-Type Natriuretic Peptide 27.0 <100.0 PG/ML Total Protein 6.7 6.4-8.2 GM/DL Albumin 4.1 3.2-4.5 GM/DL Lipase 49 8-78 U/L My Orders Orders - NELA LOPEZ APRN Cbc With Automated Diff (04/17/20 11:33) Magnesium (04/17/20 11:33) Chest 1 View, Ap/Pa Only (04/17/20 11:33) Ekg Tracing (04/17/20 11:33) Comprehensive Metabolic Panel (04/17/20 11:33) Myoglobin Serum (04/17/20 11:33) Protime With Inr (04/17/20 11:33) Partial Thromboplastin Time (04/17/20 11:33) O2 (04/17/20 11:33) Monitor-Rhythm Ecg Trace Only (04/17/20 11:33) Lipid Panel (04/18/20 06:00) Ed Iv/Invasive Line Start (04/17/20 11:33) BNP (04/17/20 11:33) Troponin I (04/17/20 11:33) Aspirin Chewable Tablet (Baby Aspirin Ch (04/17/20 11:45) Lipase (04/17/20 11:37) Ketorolac Injection (Toradol Injection) (04/17/20 11:45) Fentanyl Injection (Sublimaze Injection (04/17/20 11:45) Ct Christie Chest/Noang Abd-Pelv W (04/17/20 12:36) Iohexol Injection (Omnipaque 350 Mg/Ml 1 (04/17/20 12:45) Received Contrast (Hold Metformin- Contr (04/17/20 12:45) Sodium Chloride Flush (Catheter Flush Sy (04/17/20 12:45) Ns (Ivpb) (Sodium Chloride 0.9% Ivpb Bag (04/17/20 12:45) Antacid Suspension (Mylanta Suspension (04/17/20 14:15) Lidocaine 2% Viscous 15 Ml (Xylocaine Vi (04/17/20 14:15) Medications Given in ED Current Medications Medications Dose Ordered Sig/Clay Route Start Time Stop Time Status Last Admin Dose Admin Al Hydrox/Mg Hydrox/Simethicone 30 ml ONCE ONCE PO 04/17/20 14:15 04/17/20 14:16 DC 04/17/20 14:24 30 ML Aspirin 324 mg ONCE ONCE PO 04/17/20 11:45 04/17/20 11:46 DC 04/17/20 11:39 324 MG Fentanyl Citrate 50 mcg ONCE ONCE IVP 04/17/20 11:45 04/17/20 11:46 DC 04/17/20 11:46 50 MCG Iohexol 100 ml ONCE ONCE IV 04/17/20 12:45 04/17/20 12:46 DC 04/17/20 13:30 100 ML Ketorolac Tromethamine 15 mg ONCE ONCE IVP 04/17/20 11:45 04/17/20 11:46 DC 04/17/20 11:48 15 MG Lidocaine HCl 5 ml ONCE ONCE PO 04/17/20 14:15 04/17/20 14:16 DC 04/17/20 14:23 5 ML Sodium Chloride 10 ml NEEDED PRN IV 04/17/20 12:45 04/17/20 13:31 10 ML Sodium Chloride 100 ml ONCE ONCE IV 04/17/20 12:45 04/17/20 12:46 DC 04/17/20 13:30 80 ML Vital Signs/I&O 04/17/20 11:57 Temp 36.0 Pulse 65 Resp 18 B/P (MAP) 123/71 (88) Pulse Ox 94 Capillary Refill : Departure Communication (Admissions) 1440-Chest pain gone at this time Impression Primary Impression: Costochondritis Additional Impression: GERD (gastroesophageal reflux disease) Disposition: HOME, SELF-CARE Condition: Stable Departure-Patient Inst. Decision time for Depature: 14:36 Referrals: DAVID PILLAI MD (PCP) Primary Care Physician Patient Instructions: Costochondritis (DC) Add. Discharge Instructions: 1. Return to ER for any concerns 2. Follow up with your doctor next weekk. Scripts Pantoprazole Sodium (Protonix) 40 Mg Tablet. 40 MG PO DAILY, #20 TAB Prov: NELA LOPEZ [employer] 04/17/20 NELA LOPEZ [employer] Apr 17, 2020 11:40
[2020-04-17] MEDS ORDERED: ASPIRIN 81 MG CHEW (CHILDREN'S ASA) PO ONE (11:45)
[2020-04-17] MEDS ORDERED: KETOROLAC 30 MG/ML VIAL IVP ONE (11:45)
[2020-04-17] MEDS ORDERED: fentaNYL INJECTION 100 MCG/2 ML AMP IVP ONE (11:45)
[2020-04-17 11:49] LABS: BASOPHILS % (AUTO) 0 % (0-10); EOSINOPHILS # (AUTO) 0.4 10^3/uL (0.0-0.3); EOSINOPHILS % (AUTO) 7 % (0-10); HEMATOCRIT 44 % (40-54); HEMOGLOBIN 13.6 G/DL (13.3-17.7); LYMPHOCYTES # (AUTO) 1.2 X 10^3 (1.0-4.0); LYMPHOCYTES % (AUTO) 22 % (12-44); MEAN CORPUSCULAR HEMOGLOBIN 28 PG (25-34); MEAN CORPUSCULAR HGB CONC 31 G/DL (32-36); MEAN CORPUSCULAR VOLUME 89 FL (80-99); MEAN PLATELET VOLUME 10.1 FL (7.4-10.4); MONOCYTES # (AUTO) 0.5 X 10^3 (0.0-1.0); MONOCYTES % (AUTO) 9 % (0-12); NEUTROPHILS # (AUTO) 3.6 X 10^3 (1.8-7.8); NEUTROPHILS % (AUTO) 62 % (42-75); PLATELET COUNT 279 10^3/uL (130-400); WHITE BLOOD COUNT 5.8 10^3/uL (4.3-11.0)
[2020-04-17 12:02] LABS: ALBUMIN 4.1 GM/DL (3.2-4.5); CHLORIDE 112 MMOL/L (98-107); POTASSIUM 3.9 MMOL/L (3.6-5.0); SODIUM 150 MMOL/L (135-145)
[2020-04-17 12:04] LABS: CALCIUM 9.1 MG/DL (8.5-10.1); PROTHROMBIN TIME PATIENT 13.3 SEC (12.2-14.7)
[2020-04-17 12:05] LABS: GLUCOSE 101 MG/DL (70-105); TOTAL PROTEIN 6.7 GM/DL (6.4-8.2)
[2020-04-17 12:06] LABS: CARBON DIOXIDE 27 MMOL/L (21-32)
[2020-04-17 12:07] LABS: BILIRUBIN,TOTAL 0.3 MG/DL (0.1-1.0)
[2020-04-17 12:08] LABS: ALKALINE PHOSPHATASE 130 U/L (40-136); CREATININE SERUM 0.73 MG/DL (0.60-1.30); GFR ESTIMATED > 60
[2020-04-17 12:09] LABS: BUN/CREATININE RATIO 23
[2020-04-17 12:11] LABS: ALANINE AMINOTRANSFERASE 17 U/L (0-55)
[2020-04-17 12:12] LABS: MAGNESIUM 2.2 MG/DL (1.6-2.4)
[2020-04-17 12:13] LABS: LIPASE 49 U/L (8-78)
--- NOTE | 2020-04-17 12:36 | Diagnostic Imaging Report ---
INDICATION: Chest pain. TIME OF EXAM: 12:05 PM. COMPARISON: No prior studies are available for comparison. FINDINGS: The right hemidiaphragm is markedly elevated. There is resultant subsegmental atelectasis in the right base. The left lung appears to be fairly clear. The pulmonary vascularity is normal. There is no effusion or pneumothorax. IMPRESSION: Right hemidiaphragmatic elevation with subsegmental atelectasis in the right base. The study is otherwise unremarkable. Dictated by: Dictated on workstation # [id number]
[2020-04-17] MEDS ORDERED: NS 100 ML (IVPB) BAG IV ONE (12:45)
[2020-04-17] MEDS ORDERED: CATHETER FLUSH 10 ML SYR IV PRN (12:45)
[2020-04-17] MEDS ORDERED: IOHEXOL 350 MG/ML 100 ML (OMNIPAQUE 350) VIAL IV ONE (12:45)
[2020-04-17] MEDS ORDERED: HOLD METFORMIN - RECEIVED CONTRAST 20 ML VIAL IV SCH (12:45)
--- NOTE | 2020-04-17 14:02 | Diagnostic Imaging Report ---
INDICATION: luq/left lower chest pain CTA chest, abdomen and pelvis TECHNIQUE: Thin axial sections through the chest, abdomen and pelvis are obtained following intravenous contrast bolus. Multiplanar MIP images were reconstructed and reviewed. All CT scans use one or more of the following dose optimizing techniques: automated exposure control, MA and/or KvP adjustment based on patient size and exam type or iterative reconstruction. COMPARISON: None available. FINDINGS: CTA CHEST: No pulmonary emboli. No features of right ventricular strain or pulmonary hypertension. Normal caliber thoracic aorta. The aorta is not opacified and therefore assessment for aortic dissection is not possible. No mediastinal, hilar or juxtaphrenic lymphadenopathy. There is asymmetric elevation of the right hemidiaphragm. Trace left pleural effusion. No pneumothorax. Compressive atelectasis are present in the right lung base due to elevation of the right hemidiaphragm. No pulmonary mass, nodule or consolidation. No worrisome focal osseous lesions. CT ABDOMEN AND PELVIS: No free intraperitoneal air or fluid. Liver is normal in appearance but is displaced posteriorly as there is colon and abdominal fat located anterior to the liver. Additionally, stomach is located anterior to the liver. The spleen and pancreas are normal in appearance. No adrenal mass. Kidneys enhance symmetrically without mass lesion or obstruction. Urinary bladder is decompressed. No dilated loops of bowel to indicate bowel obstruction. Sacral dysraphism is present with a large myelomeningocele in the midline of the lumbosacral region. Dysplasia of the right hip is also noted. Severe atrophy of the musculature of the pelvis is likely from paraplegia and muscle atrophy. IMPRESSION: 1. No pulmonary emboli or other acute intrathoracic process. 2. No acute abnormality in the abdomen or pelvis. 2. Sacral dysraphism. Dictated by: Dictated on workstation # [id number]
[2020-04-17] MEDS ORDERED: LIDOCAINE 2% VISCOUS 15 ML UDC PO ONE (14:15)
[2020-04-17] MEDS ORDERED: ANTACID SUSP 30 ML UDC (MYLANTA) PO ONE (14:15)
[2020-04-17] MEDS ORDERED: PANT40TA2 PO (14:41)
[2020-04-17 15:00] VITALS: BP 110/73
== END 2020-04-17 15:00 | disposition home or self-care (01) ==
LOC: EDUNIT# 11:29 → ER 11:31
DX: M94.0 Chondrocostal junction syndrome [Tietze] (principal); K21.9 Gastro-esophageal reflux disease without esophagitis; F41.9 Anxiety disorder, unspecified
CPT/HCPCS: 36415; 71045; 71275; 74177; 80053; 83690; 83735; 83874; 83880; 84484; 85025; 85610; 85730; 93005; 93041

== ENCOUNTER 2021-03-26 07:24 | Outpatient (CLI) | payer MEDICARE, MEDICAID ==
[~2021-03-26] VITALS: Ht 162 cm; Wt 63.6 kg
[~2021-03-26 07:24] MED LIST changes: +ALPR0.5T10 PO; -ALPR0.5T5 PO; -ASCO500C15 PO; +ASCO500C18 PO; -ISOS30TA3 PO; +ISOS30TA82 PO; +MIRT-68 PO; -MIRT15TA6 PO; +PANT40TA2 PO
[2021-03-26] MEDS ORDERED: PANT40TA52 PO (12:05)
== END 2021-03-26 12:12 ==
LOC: PREOP 07:24
PROVIDERS: ATTEND Specialist
DX: Z01.818 Encounter for other preprocedural examination (principal)

== ENCOUNTER 2021-03-30 08:16 | Day surgery (SDC) | payer MEDICARE, MEDICAID ==
[~2021-03-30] VITALS: Ht 162 cm; Wt 63.6 kg
--- OUTSIDE RECORDS SUMMARY | 2021-03-30 08:19 | XMS REPORT | Clinical Summary ---
Author Author [facility] Organization [facility] Address Unknown Phone Unavailable Care Team Providers Care Resident Care Aid Name Role Phone Trey Williamson MD Unavailable David Campbell MD Unavailable Ethel Downing MD PCP Source Comments Some departments are not documenting in the electronic medical record. If you d o not see the information that you expected, contact Release of Information in [facility] Public Mobile Information Management department at [phone] for further assistan ce in locating additional records.[facility] Allergies No Known Active Allergies Medications End Date Status Medication Sig Dispensed Refills Start Date Active bumetanide (BUMEX) 1 mg Take 1 mg by 0 tablet mouth daily with lunch. Active ranitidine(+) (ZANTAC) Take 300 mg 0 300 mg tablet by mouth daily. Active mirtazapine (REMERON) 15 Take 15 mg by 0 mg tablet mouth at bedtime daily. Active pantoprazole DR Take 40 mg by 0 (PROTONIX) 40 mg tablet mouth daily. Active potassium chloride SR Take 10 mEq 0 (K-DUR) 10 mEq tablet by mouth three times daily. Take with a meal and a full glass of water. Active citalopram (CELEXA) 40 mg Take 40 mg by 0 tablet mouth daily. Active ascorbic acid(+) (VITAMIN Take 1 tablet 0 C) 1,000 mg tablet by mouth daily. Active ALPRAZolam XR(+) (XANAX Take 0.5 mg 0 XR) 0.5 mg tablet by mouth 9 daily with dinner. Active lovastatin(+) (MEVACOR) Take 10 mg by 0 10 mg tablet mouth at bedtime daily. Active melatonin 5 mg tab Take 5 mg by 0 mouth at bedtime daily. Active ibuprofen (MOTRIN) 600 mg Take 1 tablet 0 tablet by mouth 9 three times daily with meals as needed. Active polyethylene glycol 3350 Take one 12 each 0 0 (MIRALAX) 17 g packet packet by 9 mouth twice daily as needed. For constipation. 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 - Plan for simple cystectomy on Urolithiasis 02/17/2010 Surgical History Surgery Date Site/Laterality Comments BACK SURGERY BLADDER SURGERY Medical History Medical History Date Comments Anxiety disorder Spina bifida (HCC) Meningomyelocele of lumbar region (HCC) Family History Medical History Relation Name Comments Cancer Father Hypertension Mother Cancer Sister Relation Name Status Comments Father Mother Sister Social History Date Tobacco Use Types Packs/Day Years Used Never Smoker Smokeless Tobacco: Never Used Comments Alcohol Use Standard Drinks/Week No 0 (1 standard drink = 0.6 o z pure alcohol) Sex Assigned at Date Recorded Not on file Last Filed Vital Signs Reading Time Taken Comments Vital Sign 111/65 02/13/2019 9:53 AM CDT Blood Pressure 91 02/13/2019 9:53 AM CDT Pulse 36.4 C (97.6 F) 02/13/2019 9:53 AM CDT Temperature 18 12/24/2017 2:08 PM CDT Respiratory Rate 95% 02/13/2019 9:53 AM CDT Oxygen Saturation - - Inhaled Oxygen Concentration 63.5 kg (139 lb 15.9 oz) 02/11/2019 2:02 AM CDT Weight 160 cm (5' 3") 02/11/2019 2:02 AM CDT Height 24.8 02/11/2019 2:02 AM CDT Body Mass Index Plan of Treatment Health Maintenance Due Date Last Done Comments MEDICARE ANNUAL WELLNESS 1955 VISIT HIV SCREENING 12/10/1970 DTAP/TDAP VACCINES (1 - 12/10/1973 Tdap) HEPATITIS C SCREENING 12/10/1973 PHYSICAL (COMPREHENSIVE) 12/10/1973 EXAM COLORECTAL CANCER 12/10/2005 SCREENING SHINGLES RECOMBINANT 12/10/2005 VACCINE (1 of 2) PNEUMONIA (PPSV23) 12/10/2020 VACCINE (1 of 1 - PPSV23) INFLUENZA VACCINE 04/27/2021 Goals Goal Patient Associated Recent Progress Patient-Stat Aut hor Goal Type Problems ed? GOAL General Yes Jana Hale, RN Note: "Stay healthy" Results Not on filefrom Last 3 Months Additional Health Concerns Last Indicated Resolved Time Infection Onset Date 02/15/2019 ESBL 02/15/2019 Insurance Type Payer Benefit Subscriber ID Effective Phone Address Plan / Dates [id number] resent Medicaid [employer] [place] [employer] [id number] 2010- [facility] Present HEALTH Advance Directives Patient Advance Agent Explanation Type Date Recorded Advance Directive/DPOA Date Inactivated Comments Code Status Date Activated 02/13/2019 3:39 PM Full Code 02/11/2019 3:31 AM Provider has discussed Code Status No, more discussi on w/Patient or Family? needed 05/30/2012 4:16 PM Full Code 05/27/2012 1:53 PM Provider has discussed Code Status Yes w/Patient or Family?
[2021-03-30] MEDS: TETRACAINE 0.5% OPHTH SOLN 4 ML BTL (SINGLE DOSE ONLY) OU PRN ×4 (08:42→08:58)
[2021-03-30] MEDS ORDERED: POVIDONE (BETADINE) OPHTH SOLN 5% 30 ML OP ONE (08:45)
[2021-03-30] MEDS ORDERED: LIDOCAINE PF 1% 2 ML VIAL IR PRN (08:45)
[2021-03-30] MEDS ORDERED: MOXIFLOXACIN OPHTH SOLN 5 MG/ML 0.3 ML SYRINGE OP ONE (08:45)
[2021-03-30] MEDS ORDERED: TIMOLOL MALEATE 0.5% 5 ML (TIMOPTIC) BTL OU PRN (08:45)
[2021-03-30] MEDS: PHENYLEPHRINE 10% OPHTH (NEO-SYN) 5 ML BTL OU SCH ×3 (08:48→08:59)
[2021-03-30] MEDS: TROPICAMIDE 1% OPH SOLN (MYDRIACYL) 15 ML BTL OP SCH ×3 (08:48→08:59)
[2021-03-30 08:54] VITALS: BP 135/83
--- NOTE | 2021-03-30 09:08 | Ophthalmologist Pre-Op Note ---
Pre-Operative Progress Note H&P Reviewed The H&P was reviewed, patient examined and no changes noted. Date H&P Reviewed: Mar 30, 2021 Time H&P Reviewed: 09:08 Pre-Op Dx Cataract, Right Eye JORGE ANSARI MD Mar 30, 2021 09:08
--- NOTE | 2021-03-30 09:30 | Ophthalmology Operative Report ---
Cataract removal/placement IOL PREOPERATIVE DIAGNOSIS: Cataract Right Eye POSTOPERATIVE DIAGNOSIS: Cataract Right Eye PROCEDURE: Cataract removal and placement of posterior chamber implant, right eye SURGEON: Scotty Ansari ANESTHESIA: Topical with sedation COMPLICATIONS: None ESTIMATED BLOOD LOSS: Minimal DESCRIPTION OF PROCEDURE: After proper informed consent was obtained, the patient, a 65 male, was taken to the Operating Room and the right eye was anesthetized with tetracaine. The right eye was then prepped and draped in the usual manner. A wire lid speculum was placed. A paracentesis was made at the left hand position. Preservative free lidocaine was injected into the anterior chamber followed by viscoelastic. A clear corneal incision was made in the temporal position. A capsulorrhexis was preformed and the central nuclear and cortical material were removed. The posterior capsule was polished and Louie 19.0 AU00T0 IOL was placed into the capsular bag. The residual viscoelastic was aspirated and balanced saline solution was injected into the anterior chamber. Moxifloxacin was injected into the anterior chamber. The wound was checked and found to be water tight. The patient tolerated the procedure well without complications. SCOTTY ANSARI MD Mar 30, 2021 09:30
[2021-03-30 09:36] VITALS: BP 118/78
[2021-03-30] MEDS ORDERED: acetaZOLAMIDE ER 500 MG CAP (DIAMOX SEQUELS) PO ONE (10:00)
--- NOTE | 2021-03-30 13:55 | Anesthesia-General Post-Op ---
MAC Patient Condition Mental Status/LOC: Same as Preop Cardiovascular: Satisfactory Nausea/Vomiting: Absent Respiratory: Satisfactory Pain: Controlled Complications: Absent Post Op Complications Complications None Follow Up Care/Instructions Patient Instructions None needed. Anesthesiology Discharge Order Discharge Order Patient is doing well, no complaints, stable vital signs, no apparent adverse anesthesia problems. No complications reported per nursing. DIANA TORREZ CRNA Mar 30, 2021 13:55
== END 2021-03-30 09:48 ==
LOC: SDC 08:16
PROVIDERS: ATTEND Specialist
DX: H25.11 Age-related nuclear cataract, right eye (principal); K21.9 Gastro-esophageal reflux disease without esophagitis; F32.9 Major depressive disorder, single episode, unspecified; F41.9 Anxiety disorder, unspecified; E78.00 Pure hypercholesterolemia, unspecified; Z79.899 Other long term (current) drug therapy
CPT/HCPCS: 66984; V2632

== ENCOUNTER → 2021-12-21 | Outpatient (CLI) | payer MEDICARE, MEDICAID ==
[~2021-12-21] MED LIST changes: -CITA40TA11 PO; +CITA40TA13 PO
== END ==
LOC: WOUNDCARE 09:42
PROVIDERS: ATTEND Family Medicine
DX: Q05.2 Lumbar spina bifida with hydrocephalus (principal); L98.492 Non-pressure chronic ulcer of skin of other sites with fat layer exposed; L22 Diaper dermatitis
CPT/HCPCS: 11042; G0463

== ENCOUNTER → 2021-12-25 | Outpatient (CLI) | payer MEDICARE, MEDICAID | LOC: WOUNDCARE 14:29 | PROVIDERS: ATTEND Family Medicine | DX: Q05.2 Lumbar spina bifida with hydrocephalus (principal); L98.492 Non-pressure chronic ulcer of skin of other sites with fat layer exposed; G82.21 Paraplegia, complete; L22 Diaper dermatitis; I96 Gangrene, not elsewhere classified | CPT/HCPCS: 11042; G0463 ==

== ENCOUNTER → 2022-01-01 | Outpatient (CLI) | payer MEDICARE, MEDICAID | LOC: WOUNDCARE 14:25 | PROVIDERS: ATTEND Family Medicine | DX: L98.492 Non-pressure chronic ulcer of skin of other sites with fat layer exposed (principal); G82.20 Paraplegia, unspecified; Q05.2 Lumbar spina bifida with hydrocephalus; L22 Diaper dermatitis; L92.9 Granulomatous disorder of the skin and subcutaneous tissue, unspecified; I96 Gangrene, not elsewhere classified | CPT/HCPCS: 17250; G0463 ==

== ENCOUNTER → 2022-01-08 | Outpatient (CLI) | payer MEDICARE, MEDICAID | LOC: WOUNDCARE 14:22 | PROVIDERS: ATTEND Family Medicine | DX: L98.492 Non-pressure chronic ulcer of skin of other sites with fat layer exposed (principal); Q05.2 Lumbar spina bifida with hydrocephalus; G82.21 Paraplegia, complete; L22 Diaper dermatitis | CPT/HCPCS: 99212 ==

== ENCOUNTER → 2022-01-15 | Outpatient (CLI) | payer MEDICARE, MEDICAID | LOC: WOUNDCARE 14:18 | PROVIDERS: ATTEND Family Medicine | DX: L98.492 Non-pressure chronic ulcer of skin of other sites with fat layer exposed (principal); Q05.2 Lumbar spina bifida with hydrocephalus; G82.21 Paraplegia, complete; L22 Diaper dermatitis; I96 Gangrene, not elsewhere classified | CPT/HCPCS: 99212 ==

== ENCOUNTER → 2022-01-22 | Outpatient (CLI) | payer MEDICARE, MEDICAID | LOC: WOUNDCARE 14:14 | PROVIDERS: ATTEND Family Medicine | DX: L98.492 Non-pressure chronic ulcer of skin of other sites with fat layer exposed (principal); Q05.2 Lumbar spina bifida with hydrocephalus; G82.21 Paraplegia, complete; L22 Diaper dermatitis | CPT/HCPCS: 99212 ==

== ENCOUNTER → 2022-02-12 | Outpatient (CLI) | payer MEDICARE, MEDICAID | LOC: WOUNDCARE 09:46 | PROVIDERS: ATTEND Family Medicine | DX: Q05.2 Lumbar spina bifida with hydrocephalus (principal); G82.21 Paraplegia, complete; L22 Diaper dermatitis | CPT/HCPCS: 99212 ==

== ENCOUNTER → 2022-08-13 | Outpatient (CLI) | payer MEDICARE, MEDICAID ==
[~2022-08-13] MED LIST changes: -POTA10CA43 PO; +POTA10CA44 PO
== END ==
LOC: WOUNDCARE 13:11
PROVIDERS: ATTEND Family Medicine
DX: Q05.4 Unspecified spina bifida with hydrocephalus (principal); L89.523 Pressure ulcer of left ankle, stage 3; I89.0 Lymphedema, not elsewhere classified; I70.243 Atherosclerosis of native arteries of left leg with ulceration of ankle; G82.20 Paraplegia, unspecified; F70 Mild intellectual disabilities
CPT/HCPCS: 11042; A6197; A6212; G0463

== ENCOUNTER → 2022-08-15 | Outpatient (CLI) | payer MEDICARE, MEDICAID ==
--- NOTE | 2022-08-15 15:51 | Diagnostic Imaging Report ---
INDICATION: Skin ulcers left foot. EXAMINATION: Ankle-brachial indices. FINDINGS: Pressures were recorded in the brachial arteries bilaterally and in the posterior tibial and dorsalis pedis arteries bilaterally. The ankle brachial index on the right is 1.05. The ankle brachial index on the left is 1.05. IMPRESSION: The ankle-brachial indices are within normal limits. Dictated by: Dictated on workstation # [id number]
== END ==
LOC: RAD 12:06
PROVIDERS: ATTEND Family Medicine
DX: L89.523 Pressure ulcer of left ankle, stage 3 (principal); I70.243 Atherosclerosis of native arteries of left leg with ulceration of ankle; I89.0 Lymphedema, not elsewhere classified; Q03.9 Congenital hydrocephalus, unspecified; G82.20 Paraplegia, unspecified; F70 Mild intellectual disabilities
CPT/HCPCS: 93923

== ENCOUNTER → 2022-08-20 | Outpatient (CLI) | payer MEDICARE, MEDICAID | LOC: WOUNDCARE 13:55 | PROVIDERS: ATTEND Family Medicine | DX: L89.523 Pressure ulcer of left ankle, stage 3 (principal); I89.0 Lymphedema, not elsewhere classified; I70.243 Atherosclerosis of native arteries of left leg with ulceration of ankle; Q03.9 Congenital hydrocephalus, unspecified; G82.20 Paraplegia, unspecified; Q05.4 Unspecified spina bifida with hydrocephalus; F70 Mild intellectual disabilities; I96 Gangrene, not elsewhere classified | CPT/HCPCS: 11042; G0463 ==

== ENCOUNTER → 2022-08-27 | Outpatient (CLI) | payer MEDICARE, MEDICAID | LOC: WOUNDCARE 10:44 | PROVIDERS: ATTEND Family Medicine | DX: I89.0 Lymphedema, not elsewhere classified (principal); I70.243 Atherosclerosis of native arteries of left leg with ulceration of ankle; G82.21 Paraplegia, complete; Q05.4 Unspecified spina bifida with hydrocephalus; F70 Mild intellectual disabilities; L89.520 Pressure ulcer of left ankle, unstageable; L89.221 Pressure ulcer of left hip, stage 1; I96 Gangrene, not elsewhere classified | CPT/HCPCS: 99213 ==

== ENCOUNTER 2022-08-30 08:00 | Day surgery (SDC) | payer MEDICARE, MEDICAID ==
[~2022-08-30] VITALS: Ht 157.5 cm; Wt 66.0 kg
[2022-08-30] VITALS (10 sets, daily range): BP systolic 103–124; BP diastolic 56–85
[2022-08-30 07:19] LABS: HEMATOCRIT 44 % (40-54); HEMOGLOBIN 13.9 g/dL (13.3-17.7); MEAN CORPUSCULAR HEMOGLOBIN 28 pg (25-34); MEAN CORPUSCULAR HGB CONC 32 g/dL (32-36); MEAN CORPUSCULAR VOLUME 90 fL (80-99); MEAN PLATELET VOLUME 9.9 fL (9.0-12.2); PLATELET COUNT 255 10^3/uL (130-400); WHITE BLOOD COUNT 6.5 10^3/uL (4.3-11.0)
[2022-08-30 07:43] LABS: PROTHROMBIN TIME PATIENT 13.7 SEC (12.2-14.7)
[2022-08-30 07:54] LABS: BILIRUBIN,TOTAL 0.7 MG/DL (0.1-1.0); CALCIUM 9.1 MG/DL (8.5-10.1); CREATININE SERUM 0.73 MG/DL (0.60-1.30); POTASSIUM 3.4 MMOL/L (3.6-5.0); TOTAL PROTEIN 6.6 GM/DL (6.4-8.2)
[2022-08-30 07:55] LABS: ALBUMIN 3.6 GM/DL (3.2-4.5)
--- NOTE | 2022-08-30 07:56 | Diagnostic Imaging Report ---
INDICATION: Nonhealing ulcer. EXAMINATION: Chest from 08/30/2022 COMPARISON: 04/17/2020 FINDINGS: Right hemidiaphragm markedly elevated with adjacent atelectasis or infiltrate not excluded. There are no effusions. There is a possible infiltrate in the left lung base. Heart is deviated towards the left similar to previous. Pulmonary vasculature grossly unremarkable. No pneumothorax. IMPRESSION: 1. Bibasal infiltrates not excluded with marked elevation of the right hemidiaphragm. Dictated by: Dictated on workstation # [id number]
[~2022-08-30 08:00] MED LIST changes: +HEParin (CATH LAB) 2,000 ML IV ONE; +HEParin 1000 UNIT/ML (10ML VIAL) FOR BOLUS ONE; +LIDOCAINE 1% INJ 20 ML VIAL ONE; +MIDAZOLAM 5 MG/5 ML (VERSED) VIAL ONE; +NITRO DRIP 25000 MCG/D5W 0 ML IV ONE; +NS IV 1000 ML 1,000 ML IV SCH; +NS IV 1000 ML 1,000 ML ONE; +fentaNYL INJ 100 MCG/2 ML AMP ONE
--- NOTE | 2022-08-30 08:12 | Cardiac Procedure Note-CS/ASA ---
Pre-Procedure Note Pre-Op Procedure Note Date of Available H&P: Aug 27, 2022 Date H&P Reviewed: Aug 30, 2022 Time H&P Reviewed: 08:11 History & Physical: H&P Reviewed, Patient Examed, No changes noted Pre-Operative Diagnosis: PAD Conscious Sedation Pre-Proced Time 08:12 ASA Score 3 For ASA 3 and 4: Consider anesthesia and medical clearance. Also, for patients with a history of failed moderate sedation consider anesthesia. Airway Lungs Heart ASA score ASA 1: a normal healthy patient ASA 2: a patient with a mild systemic disease (mid diabetes, controlled hypertension, obesity ASA 3: a patient with a severe systemic disease that limits activity (angina, COPD, prior Myocardial infarction) ASA 4: a patient with an incapacitating disease that is a constant threat to life (CHF, renal failure) ASA 5: a moribund patient not expected to survive 24 hrs. (ruptured aneurysm) ASA 6: a declared brain- patient whose organs are being harvested. For emergent operations, add the letter E after the classification Mallampati Classification Grade 3 Sedation Plan Analgesia, Amnesia, Plan communicated to team members, Discussed options with patient/fam, Discussed risks with patient/fam The patient is an appropriate candidate to undergo the planned procedure, sedation, and anesthesia. The patient immediately re-assessed prior to indication. NELSON MCCLURE MD Aug 30, 2022 08:12
--- NOTE | 2022-08-30 08:54 | Discharge Inst-Post CATH ---
Discharge Inst-CATH/EP Problems Reviewed?: Yes Post Cardiac Cath/EP D/C Inst Follow Up/Plan Appointment with Dr. Alcantara's office in 4 weeks <b>CARDIAC CATH/EP PROCEDURE DISCHARGE INSTRUCTIONS</b> ACTIVITY * Go Home directly and rest. * Limit activity of the leg (or wrist if it was used) for 7 days including aerobics, swimming, jogging, bicycling, etc. * Restrict stair-climbing for 7 days if possible, if not, climb up with your non-cath leg, then bring together on the same step. * Avoid lifting, pushing, pulling or excessive movement of the affected extremity for 7 days. * Customary sexual activity may be resumed after 2 days-use caution not to use a position that strains or causes pain to the affected extremity. * No driving for 24 hours. * NO SMOKING. * Avoid straining for bowel movements for 7 days. * Gentle walking on level ground is allowed. * Returning to work will depend on the type of procedure and the results. Your doctor will discuss this with you. CALL YOUR DOCTOR FOR ANY OF THE FOLLOWING: *If bleeding from the puncture site occurs- Apply gentle pressure to site with clean cloth and call your doctor or EMS. * If a knot or lump forms under the skin, increases in size, or causes pain. * If bruising appears to be worsening or moving further down your leg instead of disappearing. * Temperature above 101 F. CARE OF YOUR GROIN INCISION; * Bruising or purple discoloration of the skin near the puncture site is common. * You may shower only, no bathtub bathing for 5 days. Be careful to avoid slipping as your leg may feel stiff. * If a closure device was used on your femoral artery, please see the attached guide regarding care of the device and your leg. * Leave dressing on FOR 24 hours. CARE OF YOUR WRIST INCISION; * Bruising or purple discoloration of the skin near the puncture site is common. * You may shower. * DO NOT submerge wrist. * Leave dressing on FOR 24 hours. NELSON ALCANTARA MD Aug 30, 2022 08:54
--- NOTE | 2022-08-30 08:59 | Peripheral Report ---
Peripheral Report Physician (s)/Traffic Safety Administrator (s) Physician NELSON MCCLURE MD Pre-Procedure Diagnosis Pre-Procedure Diagnosis: PAD Post-Procedure Note Procedure Start Date: Aug 30, 2022 Name of Procedure: Bilateral lower extremities runoff Third order Additional imaging x2 Findings/Procedure Note PROCEDURE NOTE: 66-year-old gentleman with history of spina bifida, has nonhealing wound on his left foot. Had abnormal TBI. Scheduled for angiogram. After explaining the procedure to the patient, all pros and cons were explained, all questions were answered. The patient signed the consent and then he was placed on the cardiac catheterization laboratory. The patient was placed on the cardiac catheterization laboratory. Groin was prepped SL fashion local anesthesia was used. Sheath placed in the right femoral artery, runoff was done to the right lower extremity. Rim catheter was placed at the left common iliac artery then runoff to the left leg was done. Slow flow was noted, I advanced a Storq wire then placed a straight catheter down in the popliteal artery and did DSA imaging to the trifurcation then DSA imaging at the level of the foot then the straight catheter was pulled back to the right common iliac artery and angiogram was done. At the end of the procedure sheath was removed, manual pressure applied FINDINGS: Right lower extremity: Right common iliac and common femoral artery has 40% stenosis nonobstructive disease. Right SFA slightly tortuous with no obstructive disease Trifurcation is normal with a very slow flow due to small vessel disease. Left lower extremity Left common iliac artery is normal Left common femoral artery is normal Left SFA and popliteal artery are slightly tortuous with no significant obstructive disease Left anterior tibial, posterior tibial and peroneal artery are normal down to the foot. At the level of the foot there is very slow flow due to small vessel disease CONCLUSIONS: 1. Small vessel disease, there is no obstructive disease down to the foot on the left lower extremity 2. Slow flow with small vessel disease down to the trifurcation on the right lower extremity DISCUSSION AND RECOMMENDATIONS: Nonhealing ulcer is probably decubitus in addition to small vessel disease. No intervention is warranted Anesthesia Type: Conscious Sedation Estimated blood loss (mL): 20 ml Contrast Amount: 18 ml Total Radiation Dose: 64 mGy Post-Procedure Diagnosis Post-operative diagnosis: Nonhealing foot ulcer Peripheral arterial disease Claudication Spina bifida with hydrocephalus NELSON MCCLURE MD Aug 30, 2022 08:59
[2022-08-30] MEDS ORDERED: PATIENT MAY USE OWN MEDS, ALL PO SCH (09:00)
[2022-08-30] MEDS ORDERED: NS IV 1000 ML 1,000 ML IV SCH (09:00)
--- NOTE | 2022-08-30 16:53 | Diagnostic Imaging Report ---
EXAMINATION: Left femur radiographs, 2 views, 4 images. COMPARISON: None. HISTORY: 56-year-old male, pain. Suspected fracture. FINDINGS: The bones are demineralized. There is an oblique fracture of the distal femur at the level of the distal femoral diaphysis extending towards the level of the distal femoral metaphysis with at least a partially visible fracture line on image 2. There is also productive bone formation suggesting this fracture may not necessarily be acute in age. There is a deformity of the proximal tibia which is age-indeterminate although may not necessarily be acute. The left hip is not obviously dislocated. There is a lumbosacral levoscoliosis. IMPRESSION: 1. Displaced fracture of the left distal femur with at least partially visible fracture line. This is most likely not acute in age given additional productive bone formation present. 2. Most likely chronic fracture deformity of the proximal tibia. 3. The bones are demineralized. 4. Technical limitations of the study. Dictated by: Dictated on workstation # [id number]
== END 2022-08-30 14:00 | disposition home or self-care (01) ==
LOC: CATH 08:00 → CSD 09:39 → CATH 14:00
PROVIDERS: ATTEND Internal Medicine Cardiovascular Disease
DX: I70.245 Atherosclerosis of native arteries of left leg with ulceration of other part of foot (principal); L97.529 Non-pressure chronic ulcer of other part of left foot with unspecified severity; Q05.2 Lumbar spina bifida with hydrocephalus; I65.23 Occlusion and stenosis of bilateral carotid arteries; E78.2 Mixed hyperlipidemia; I10 Essential (primary) hypertension; K21.9 Gastro-esophageal reflux disease without esophagitis; Z79.899 Other long term (current) drug therapy
CPT/HCPCS: 36247; 36248; 71045; 73552; 75716; 80053; 80061; 85027; 85610; 85730; 87081; 93005; C1769; C1887 ×2; C1894; 36415

== ENCOUNTER → 2022-09-03 | Outpatient (CLI) | payer MEDICARE, MEDICAID ==
[~2022-09-03] MED LIST changes: -HEParin (CATH LAB) 2,000 ML IV ONE; -HEParin 1000 UNIT/ML (10ML VIAL) FOR BOLUS ONE; -LIDOCAINE 1% INJ 20 ML VIAL ONE; -MIDAZOLAM 5 MG/5 ML (VERSED) VIAL ONE; -NITRO DRIP 25000 MCG/D5W 0 ML IV ONE; -NS IV 1000 ML 1,000 ML IV SCH; -NS IV 1000 ML 1,000 ML ONE; -fentaNYL INJ 100 MCG/2 ML AMP ONE
== END ==
LOC: CARD 13:35
PROVIDERS: ATTEND Internal Medicine Cardiovascular Disease
DX: I10 Essential (primary) hypertension (principal); I25.10 Atherosclerotic heart disease of native coronary artery without angina pectoris
CPT/HCPCS: 93306

== ENCOUNTER → 2022-09-03 | Outpatient (CLI) | payer MEDICARE, MEDICAID | LOC: WOUNDCARE 13:39 | PROVIDERS: ATTEND Family Medicine | DX: I96 Gangrene, not elsewhere classified (principal); I70.242 Atherosclerosis of native arteries of left leg with ulceration of calf; I89.0 Lymphedema, not elsewhere classified; Q03.9 Congenital hydrocephalus, unspecified; L89.523 Pressure ulcer of left ankle, stage 3; L89.222 Pressure ulcer of left hip, stage 2; G82.20 Paraplegia, unspecified; F70 Mild intellectual disabilities | CPT/HCPCS: 11042; A6212; G0463 ==

== ENCOUNTER → 2022-09-06 | Outpatient (CLI) | payer MEDICARE, MEDICAID | LOC: WOUNDCARE 11:01 | PROVIDERS: ATTEND Family Medicine | DX: L89.529 Pressure ulcer of left ankle, unspecified stage (principal) | CPT/HCPCS: 29581; G0463 ==

== ENCOUNTER → 2022-09-10 | Outpatient (CLI) | payer MEDICARE, MEDICAID | LOC: WOUNDCARE 13:31 | PROVIDERS: ATTEND Family Medicine | DX: L89.523 Pressure ulcer of left ankle, stage 3 (principal); L89.223 Pressure ulcer of left hip, stage 3; I89.0 Lymphedema, not elsewhere classified; I70.243 Atherosclerosis of native arteries of left leg with ulceration of ankle; Q03.9 Congenital hydrocephalus, unspecified; G82.20 Paraplegia, unspecified; Q05.4 Unspecified spina bifida with hydrocephalus; F70 Mild intellectual disabilities; I96 Gangrene, not elsewhere classified | CPT/HCPCS: 11042; G0463 ==

== ENCOUNTER → 2022-09-10 | Outpatient (CLI) | payer MEDICARE, MEDICAID | LOC: ORTHO 13:23 | PROVIDERS: ATTEND Orthopaedic Surgery | DX: S72.402A Unspecified fracture of lower end of left femur, initial encounter for closed fracture (principal); X58.XXXA Exposure to other specified factors, initial encounter | CPT/HCPCS: 99203 ==

== ENCOUNTER → 2022-09-17 | Outpatient (CLI) | payer MEDICARE, MEDICAID ==
--- NOTE | 2022-09-17 17:55 | Diagnostic Imaging Report ---
HISTORY: Fracture of the left hip, pressure ulcer, osteomyelitis. COMPARISON: Radiographs from 08/30/2022. TECHNIQUE: Two views of the left hip. FINDINGS: Bone density is diffusely low. There is moderate degenerative change in the left hip joint. The bones appear gracile and over-tubulated. There is leftward tilt of the pelvis. No acute fracture is seen. No bony erosion is seen. IMPRESSION: 1. Osteopenic, gracile femur with degenerative change in the left hip, but no acute fracture or radiographic findings of osteomyelitis. If there is persistent clinical concern, consider MRI. Dictated by: Dictated on workstation # [id number]
== END ==
LOC: WOUNDCARE 13:54
PROVIDERS: ATTEND Family Medicine
DX: I70.243 Atherosclerosis of native arteries of left leg with ulceration of ankle (principal); I89.0 Lymphedema, not elsewhere classified; G82.20 Paraplegia, unspecified; Q05.2 Lumbar spina bifida with hydrocephalus; F70 Mild intellectual disabilities; L89.523 Pressure ulcer of left ankle, stage 3; L89.223 Pressure ulcer of left hip, stage 3; M25.18 Fistula, other specified site; I96 Gangrene, not elsewhere classified
CPT/HCPCS: 11042; 73502; 84134; 85652; 86141; G0463; 36415

== ENCOUNTER → 2022-09-24 | Outpatient (CLI) | payer MEDICARE, MEDICAID | LOC: WOUNDCARE 13:43 | PROVIDERS: ATTEND Family Medicine | DX: I89.0 Lymphedema, not elsewhere classified (principal); I70.243 Atherosclerosis of native arteries of left leg with ulceration of ankle; G82.20 Paraplegia, unspecified; Q05.4 Unspecified spina bifida with hydrocephalus; F70 Mild intellectual disabilities; L89.223 Pressure ulcer of left hip, stage 3; L89.523 Pressure ulcer of left ankle, stage 3; M25.18 Fistula, other specified site; I96 Gangrene, not elsewhere classified | CPT/HCPCS: 11042; G0463 ==

== ENCOUNTER → 2022-10-01 | Outpatient (CLI) | payer MEDICARE, MEDICAID | LOC: WOUNDCARE 13:48 | PROVIDERS: ATTEND Family Medicine | DX: I70.243 Atherosclerosis of native arteries of left leg with ulceration of ankle (principal); L89.523 Pressure ulcer of left ankle, stage 3; I89.0 Lymphedema, not elsewhere classified; G82.20 Paraplegia, unspecified; Q05.4 Unspecified spina bifida with hydrocephalus; F70 Mild intellectual disabilities; L89.223 Pressure ulcer of left hip, stage 3; M25.18 Fistula, other specified site; M80.052A Age-related osteoporosis with current pathological fracture, left femur, initial encounter for fracture; E44.0 Moderate protein-calorie malnutrition; I96 Gangrene, not elsewhere classified | CPT/HCPCS: 11042; A6021; G0463 ==

== ENCOUNTER → 2022-10-08 | Outpatient (CLI) | payer MEDICARE, MEDICAID | LOC: WOUNDCARE 12:36 | PROVIDERS: ATTEND Family Medicine | DX: I89.0 Lymphedema, not elsewhere classified (principal) | CPT/HCPCS: 29581; A6021; G0463 ==

== ENCOUNTER → 2022-10-15 | Outpatient (CLI) | payer MEDICARE, MEDICAID | LOC: WOUNDCARE 13:39 | PROVIDERS: ATTEND Family Medicine | DX: I89.0 Lymphedema, not elsewhere classified (principal); I70.243 Atherosclerosis of native arteries of left leg with ulceration of ankle; Q03.9 Congenital hydrocephalus, unspecified; G82.20 Paraplegia, unspecified; Q05.4 Unspecified spina bifida with hydrocephalus; F70 Mild intellectual disabilities; L89.523 Pressure ulcer of left ankle, stage 3; L89.223 Pressure ulcer of left hip, stage 3; M25.18 Fistula, other specified site; M80.052A Age-related osteoporosis with current pathological fracture, left femur, initial encounter for fracture; E44.0 Moderate protein-calorie malnutrition; I96 Gangrene, not elsewhere classified | CPT/HCPCS: 11042; A6021; A6212; G0463 ==

== ENCOUNTER → 2022-10-22 | Outpatient (CLI) | payer MEDICARE, MEDICAID | LOC: WOUNDCARE 12:39 | PROVIDERS: ATTEND Family Medicine | DX: I89.0 Lymphedema, not elsewhere classified (principal); I70.243 Atherosclerosis of native arteries of left leg with ulceration of ankle; G82.20 Paraplegia, unspecified; F70 Mild intellectual disabilities; Q05.4 Unspecified spina bifida with hydrocephalus; L89.223 Pressure ulcer of left hip, stage 3; L89.523 Pressure ulcer of left ankle, stage 3; M25.18 Fistula, other specified site; E66.01 Morbid (severe) obesity due to excess calories; M80.052A Age-related osteoporosis with current pathological fracture, left femur, initial encounter for fracture | CPT/HCPCS: 11042; 29581; A6212; G0463 ==

== ENCOUNTER → 2022-10-29 | Outpatient (CLI) | payer MEDICARE, MEDICAID ==
--- NOTE | 2022-10-29 13:38 | Diagnostic Imaging Report ---
INDICATION: History of fracture. Follow-up. COMPARISON: 08/30/2022 FINDINGS: Multiple radiographic views of the left femur were obtained. Again identified is gross deformity of the distal femur consistent with old partially healed fracture. Fracture fragments are in stable alignment. Chronic deformity of proximal tibia is also noted, although not well visualized. No new acute fracture dislocation left femur is seen. No unexpected radio opaque foreign bodies are identified. Note is again made of diminished bone mineral density. IMPRESSION: 1. Redemonstration partially healed nonacute fracture of the distal left femur. 2. No new acute fracture or dislocation. Dictated by: Dictated on workstation # [id number]
== END ==
LOC: ORTHO 13:00
PROVIDERS: ATTEND Orthopaedic Surgery
DX: S72.492D Other fracture of lower end of left femur, subsequent encounter for closed fracture with routine healing (principal); X58.XXXD Exposure to other specified factors, subsequent encounter
CPT/HCPCS: 73552; G0463; 99213

== ENCOUNTER → 2022-10-29 | Outpatient (CLI) | payer MEDICARE, MEDICAID | LOC: WOUNDCARE 12:21 | PROVIDERS: ATTEND Family Medicine | DX: L89.223 Pressure ulcer of left hip, stage 3 (principal); I89.0 Lymphedema, not elsewhere classified; I70.243 Atherosclerosis of native arteries of left leg with ulceration of ankle; G82.20 Paraplegia, unspecified; Q05.4 Unspecified spina bifida with hydrocephalus; F70 Mild intellectual disabilities; L89.523 Pressure ulcer of left ankle, stage 3; M25.18 Fistula, other specified site; M80.052A Age-related osteoporosis with current pathological fracture, left femur, initial encounter for fracture; E44.0 Moderate protein-calorie malnutrition | CPT/HCPCS: 11042; A6212; G0463 ==

== ENCOUNTER → 2022-11-05 | Outpatient (CLI) | payer MEDICARE, MEDICAID | LOC: WOUNDCARE 12:33 | PROVIDERS: ATTEND Family Medicine | DX: I89.0 Lymphedema, not elsewhere classified (principal); I70.243 Atherosclerosis of native arteries of left leg with ulceration of ankle; G82.20 Paraplegia, unspecified; Q05.4 Unspecified spina bifida with hydrocephalus; F70 Mild intellectual disabilities; L89.523 Pressure ulcer of left ankle, stage 3; L89.223 Pressure ulcer of left hip, stage 3; M25.18 Fistula, other specified site; M80.052A Age-related osteoporosis with current pathological fracture, left femur, initial encounter for fracture; E44.0 Moderate protein-calorie malnutrition; I96 Gangrene, not elsewhere classified | CPT/HCPCS: 11042; A6212; G0463 ==

== ENCOUNTER → 2022-11-12 | Outpatient (CLI) | payer MEDICARE, MEDICAID | LOC: WOUNDCARE 12:27 | PROVIDERS: ATTEND Family Medicine | DX: I89.0 Lymphedema, not elsewhere classified (principal); G82.20 Paraplegia, unspecified; Q05.4 Unspecified spina bifida with hydrocephalus; F70 Mild intellectual disabilities; L89.223 Pressure ulcer of left hip, stage 3; M25.18 Fistula, other specified site; M80.052A Age-related osteoporosis with current pathological fracture, left femur, initial encounter for fracture; E44.0 Moderate protein-calorie malnutrition; I96 Gangrene, not elsewhere classified | CPT/HCPCS: 11042; A6212; G0463 ==

== ENCOUNTER → 2022-11-19 | Outpatient (CLI) | payer MEDICARE, MEDICAID | LOC: WOUNDCARE 12:33 | PROVIDERS: ATTEND Family Medicine | DX: I89.0 Lymphedema, not elsewhere classified (principal); Q03.9 Congenital hydrocephalus, unspecified; G82.21 Paraplegia, complete; Q05.4 Unspecified spina bifida with hydrocephalus; F70 Mild intellectual disabilities; L89.223 Pressure ulcer of left hip, stage 3; M25.18 Fistula, other specified site; M80.052A Age-related osteoporosis with current pathological fracture, left femur, initial encounter for fracture; E44.0 Moderate protein-calorie malnutrition; I96 Gangrene, not elsewhere classified | CPT/HCPCS: A6212; A6260; G0463; 99213 ==

== ENCOUNTER → 2022-12-19 | Outpatient (CLI) | payer MEDICARE, MEDICAID | LOC: WOUNDCARE 13:28 | PROVIDERS: ATTEND Family Medicine | DX: I89.0 Lymphedema, not elsewhere classified (principal); G82.20 Paraplegia, unspecified; Q05.4 Unspecified spina bifida with hydrocephalus; F70 Mild intellectual disabilities; M25.18 Fistula, other specified site; M80.052A Age-related osteoporosis with current pathological fracture, left femur, initial encounter for fracture; E44.0 Moderate protein-calorie malnutrition; L89.153 Pressure ulcer of sacral region, stage 3; L24.A0 Irritant contact dermatitis due to friction or contact with body fluids, unspecified; I96 Gangrene, not elsewhere classified | CPT/HCPCS: 99212 ==

== ENCOUNTER → 2022-12-24 | Outpatient (CLI) | payer MEDICARE, MEDICAID ==
--- NOTE | 2022-12-24 16:46 | Diagnostic Imaging Report ---
INDICATION: Right leg pain. FINDINGS: Right leg venous Doppler study performed in the routine fashion with color flow Doppler and waveform analysis. The right common femoral vein and profunda femoris vein and SFV and popliteal vein are patent. There is no visualized flow in the peroneal vein or posterior tibial vein. IMPRESSION: There is right leg deep vein thrombosis at the calf level with no flow seen in the posterior tibial vein or peroneal vein. There is no evidence of thrombus above the knee level. Dictated by: Dictated on workstation # [id number]
== END ==
LOC: RAD 14:22
PROVIDERS: ATTEND Family Medicine
DX: I82.4Z1 Acute embolism and thrombosis of unspecified deep veins of right distal lower extremity (principal)

== ENCOUNTER → 2022-12-30 | Outpatient (CLI) | payer MEDICARE, MEDICAID | LOC: WOUNDCARE 14:53 | PROVIDERS: ATTEND Family Medicine | DX: I89.0 Lymphedema, not elsewhere classified (principal); G82.21 Paraplegia, complete; Q05.4 Unspecified spina bifida with hydrocephalus; F70 Mild intellectual disabilities; M25.18 Fistula, other specified site; M80.052A Age-related osteoporosis with current pathological fracture, left femur, initial encounter for fracture; E44.0 Moderate protein-calorie malnutrition; L89.153 Pressure ulcer of sacral region, stage 3; L24.A9 Irritant contact dermatitis due friction or contact with other specified body fluids; L89.612 Pressure ulcer of right heel, stage 2; I96 Gangrene, not elsewhere classified | CPT/HCPCS: A6212; G0463; 99212 ==

== ENCOUNTER → 2022-12-31 | Outpatient (CLI) | payer MEDICARE, MEDICAID ==
--- NOTE | 2022-12-31 16:53 | Diagnostic Imaging Report ---
Indication: Femur fracture, followup. Time of Exam: 1:17 PM Correlation is made with prior radiographs from 10/29/2022. Obliquely aortic fracture of the distal femur is again noted. There is continued blurring of the fracture lines consistent with some healing although fracture line does remain partially visible. There is moderate callus formation present. A chronic appearing deformity of the proximal tibia is stable. Alignment at the hip and knee is stable. Impression: Healing distal femur fracture. However, fracture line does remain partially visible. Overall alignment is anatomic. Dictated by: Dictated on workstation # [id number]
== END ==
LOC: ORTHO 13:01
PROVIDERS: ATTEND Orthopaedic Surgery
DX: S72.492D Other fracture of lower end of left femur, subsequent encounter for closed fracture with routine healing (principal); X58.XXXD Exposure to other specified factors, subsequent encounter
CPT/HCPCS: 73552; G0463; 99213

== ENCOUNTER → 2023-03-18 | Outpatient (CLI) | payer MEDICARE, MEDICAID ==
[~2023-03-18] MED LIST changes: +POTA-185 PO; -POTA10CA44 PO; +POTA10CA84 PO; -POTA10TA PO
== END ==
LOC: ORTHO 14:04
PROVIDERS: ATTEND Orthopaedic Surgery
DX: S82.101D Unspecified fracture of upper end of right tibia, subsequent encounter for closed fracture with routine healing (principal); S73.004D Unspecified dislocation of right hip, subsequent encounter; X58.XXXD Exposure to other specified factors, subsequent encounter
CPT/HCPCS: 99213

== ENCOUNTER → 2023-04-14 | Outpatient (CLI) | payer MEDICARE, MEDICAID | LOC: WOUNDCARE 13:15 | PROVIDERS: ATTEND Family Medicine | DX: I96 Gangrene, not elsewhere classified (principal); L89.143 Pressure ulcer of left lower back, stage 3; Q05.2 Lumbar spina bifida with hydrocephalus; G82.21 Paraplegia, complete; M62.3 Immobility syndrome (paraplegic); L24.B0 Irritant contact dermatitis related to unspecified stoma or fistula | CPT/HCPCS: 11042; A6197; G0463 ==

== ENCOUNTER → 2023-05-15 | Outpatient (CLI) | payer MEDICARE, MEDICAID ==
[2023-05-15 14:45] LABS: BASOPHILS % (AUTO) 0 % (0-10); EOSINOPHILS # (AUTO) 0.1 10^3/uL (0.0-0.3); EOSINOPHILS % (AUTO) 2 % (0-10); HEMATOCRIT 45 % (40-54); HEMOGLOBIN 13.7 g/dL (13.3-17.7); LYMPHOCYTES # (AUTO) 1.4 10^3/uL (1.0-4.0); LYMPHOCYTES % (AUTO) 24 % (12-44); MEAN CORPUSCULAR HEMOGLOBIN 27 pg (25-34); MEAN CORPUSCULAR HGB CONC 31 g/dL (32-36); MEAN CORPUSCULAR VOLUME 88 fL (80-99); MEAN PLATELET VOLUME 10.1 fL (9.0-12.2); MONOCYTES # (AUTO) 0.6 10^3/uL (0.0-1.0); MONOCYTES % (AUTO) 10 % (0-12); NEUTROPHILS # (AUTO) 3.6 10^3/uL (1.8-7.8); NEUTROPHILS % (AUTO) 64 % (42-75); PLATELET COUNT 250 10^3/uL (130-400); WHITE BLOOD COUNT 5.7 10^3/uL (4.3-11.0)
[2023-05-15 14:59] LABS: ALBUMIN 4.1 GM/DL (3.2-4.5); POTASSIUM 4.2 MMOL/L (3.6-5.0)
[2023-05-15 15:01] LABS: CALCIUM 9.7 MG/DL (8.5-10.1)
[2023-05-15 15:02] LABS: TOTAL PROTEIN 7.4 GM/DL (6.4-8.2)
[2023-05-15 15:03] LABS: BILIRUBIN,TOTAL 0.3 MG/DL (0.1-1.0)
[2023-05-15 15:05] LABS: CREATININE SERUM 0.84 MG/DL (0.60-1.30)
== END ==
LOC: WOUNDCARE 13:48
PROVIDERS: ATTEND Family Medicine
DX: L89.143 Pressure ulcer of left lower back, stage 3 (principal); Q05.2 Lumbar spina bifida with hydrocephalus; G82.21 Paraplegia, complete; M62.3 Immobility syndrome (paraplegic); L24.B1 Irritant contact dermatitis related to digestive stoma or fistula; R63.4 Abnormal weight loss
CPT/HCPCS: 80053; 84134; 85025; A6197; A6212; G0463; 36415; 99212